=== PATIENT | female | born 1980 | race African-American/Black ===

== ENCOUNTER 2016-05-27 09:41 | Outpatient (CLI) | payer BC, MEDICAID ==
[2016-05-27] MEDS ORDERED: NORMAL SALINE 1000 ML 1,000 ML IV PRN (10:34)
[2016-05-27] MEDS ORDERED: ACETAMINOPHEN 325 MG TABLET PO PRN (10:35)
[2016-05-27] MEDS ORDERED: FUROSEMIDE INJ/PF 20 MG/2 ML SDV IV PRN (10:37)
[2016-05-27] MEDS ORDERED: DIPHENHYDRAMINE HCL 25 MG CAPSULE PO PRN (10:37)
[2016-05-27 12:14] LABS: HEMATOCRIT 23.5 % (36.0-47.0); HGB HCT DIFFERENCE 0.2; MEAN CORPUSCULAR HEMOGLOBIN 29.2 pg (27.0-33.4); MEAN CORPUSCULAR HGB CONC 33.6 g/dL (32.0-36.0); MEAN CORPUSCULAR VOLUME 87 fl (80-97); RED CELL DISTRIBUTION WIDTH 14.5 % (11.5-14.0)
[2016-05-27 12:59] LABS: HEMOGLOBIN 7.9 g/dL (12.0-15.5)
[2016-05-27 13:07] LABS: WHITE BLOOD COUNT 0.4 10^3/uL (4.0-10.5)
[2016-05-27 17:58] VITALS: BP 104/70
[2016-05-28 11:42] LABS: PATH REVIEW PATHOLOGIST REVIEWED
== END 2016-05-27 18:10 | disposition home or self-care (01) ==
LOC: II 09:41 → 5TH 09:44 → 2S 10:09 → II 18:10
PROVIDERS: ATTEND Internal Medicine Medical Oncology
PROC: 30243N1 Transfusion of Nonautologous Red Blood Cells into Central Vein, Percutaneous Approach (ICD-10-PCS; principal; 2016-05-27)
DX: C92.00 Acute myeloblastic leukemia, not having achieved remission (principal); D63.0 Anemia in neoplastic disease
CPT/HCPCS: 86900; 86901; 36415; 36430; 86850; 86920; P9016; P9035; J1940; J7030

== ENCOUNTER 2016-09-10 08:48 | Emergency (ER) | payer OTHER, BC ==
[2016-09-10] MEDS ORDERED: ACETAMINOPHEN 325 MG TABLET PO ONE (10:01)
[2016-09-10] MEDS ORDERED: DEXAMETHASONE SOD PHOS INJ 10 MG/1 ML VIAL IM ONE (10:01)
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
[2016-09-10 11:17] VITALS: BP 126/84
== END 2016-09-10 11:33 | disposition home or self-care (01) ==
LOC: ER 08:48
DX: R07.89 Other chest pain (principal); M54.41 Lumbago with sciatica, right side; M54.89 Other dorsalgia; V47.5XXA Car driver injured in collision with fixed or stationary object in traffic accident, initial encounter; Y93.89 Activity, other specified; C95.01 Acute leukemia of unspecified cell type, in remission; Z87.891 Personal history of nicotine dependence; Z88.8 Allergy status to other drugs, medicaments and biological substances
CPT/HCPCS: 71020; 72070; 72110; 99284

== ENCOUNTER 2017-09-23 11:32 | Inpatient (IN) | payer MEDICAID ==
[2017-09-23] MEDS ORDERED: HYDROMORPHONE HCL INJ/PF 2 MG/ML AMPULE IV ONE ×3 (12:08→13:56)
--- NOTE | 2017-09-23 12:36 | EKG REPORT ---
SEVERITY:- ABNORMAL ECG - SINUS TACHYCARDIA LEFT ANTERIOR FASCICULAR BLOCK : Confirmed by: Major Gurrola MD 23-Sep-2017 12:34:58
--- NOTE | 2017-09-23 12:36 | ER Document Report ---
ED General - General Chief Complaint: Chest Pain Stated Complaint: CHEST PAIN Time Seen by Provider: 09/23/17 12:06 TRAVEL OUTSIDE OF THE [place] 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 Patient is advised by her [facility] oncologist to come to the emergency department. She describes onset gradually last night of substernal chest pain, tight at times, now a pleuritic component. Some shortness of breath. Some cough. Nonradiating. Otherwise poorly described. Finish her IV chemotherapy is not taking oral chemotherapy. No other modifying factors, no other associated symptoms, no other provocative or palliative factors. - Related Data Allergies/Adverse Reactions: naproxen [From Aleve] Allergy (Intermediate, Verified 09/23/17 12:29) Yovany Past Medical History - General Information source: Patient - Social History Smoking Status: Never Smoker Family History: COPD, CVA, Hypertension, Malignancy - Medical History Notes: Includes acute myelogenous leukemia Pulmonary Medical History: Reports: Hx Pneumonia Renal/ Medical History: Denies: Hx Peritoneal Dialysis Malignancy Medical History: Reports: Hx Leukemia - AML Musculoskeltal Medical History: Reports Hx Musculoskeletal Deformity - Low back pain chronic Past Surgical History: Reports: Hx Section - x2, Hx Herniorrhaphy, Hx Tubal Ligation, Other - Ventral hernia and a right-sided Port-A-Cath - Immunizations Hx Diphtheria, Pertussis, Tetanus Vaccination: No Review of Systems - Review of Systems Notes: Review of systems as in the history of present illness, otherwise negative. Physical Exam - Vital signs Vitals: Resp BP Pulse Ox 23 H 117/74 100 09/23/17 12:23 09/23/17 12:23 09/23/17 12:23 - Notes Notes: General: Well developed . HEENT: Normocephalic, atraumatic. Pupils equal round reactive to light. No JVD. Chest: No trauma. Respiratory: Good air exchange, normal excursion. Cardiac: Regular rhythm. No murmurs or gallops. Abdomen: Soft, benign. Nondistended. Nontender. Back: No asymmetry or gross abnormality. Motor: Grossly normal power and tone. Neurologic: Alert, nonfocal. Cranial nerves II-12 are intact. Sensation intact. Vascular: Well perfused. Normal peripheral pulses. Skin: No petechiae or purpura. Remedies: Right proximal thigh tenderness without palpable venous cord Course - Re-evaluation Re-evalutation: 09/23/17 12:35 37-year-old female the after mentioned symptoms. Broad differential diagnosis includes pneumonia, pulmonary embolism, DVT. Less likely ACS but would be considered. May be esophageal spasm or atypical chest pain. Plan to proceed with basic labs, d-dimer screen, EKG, ultrasound, reevaluate. Will treat pain and nausea. 09/23/17 15:56 Labs reviewed, pancytopenia is noted with a total white count of 0.2, ANC of 0.1. There is noted to be depressed hemoglobin at 9.7, platelets are 42. Troponin elevated at 3.01. D-dimer is modestly elevated. Patient underwent emergent CTA to evaluate for pulmonary embolism, this is read as negative, there is no report of pneumonia or parenchymal abnormality. Patient did undergo ultrasound of her right lower extremity as she has some equivocal pain in her right medial thigh. This is negative for DVT. Patient has had some persistent tachycardia despite IV fluids. Of note, she is not febrile. I do not have a source of infection at this time nor strong suspicion of such. I originally spoke with the hospitalists here, they requested I speak with our generator operator straight bevel gear who indicated he felt the patient should be transferred to to the possibility of a need for intervention. Contact was made with both [facility] and [facility], however, ultimately patient was reassessed by her generator operator straight bevel gear felt to be appropriate for treatment here. She is going to undergo urgent echocardiogram and reevaluation. Her ECG does not show any acute ischemic changes. My suspicion for acute coronary syndrome is reasonably low given she has 0 risk factors and no significant family history. This is more likely to be something like myocarditis or atypical pericarditis. She remains hemodynamic is stable with a blood pressure in the 110s. Her pain is markedly improved with IV opiates. She will be admitted as discussed. She is received IV crystalloid resuscitation. She also received oral potassium early during the course of her treatment. 12 Lead ECG Analysis A 12 lead ECG is obtained and shows a sinus rhythm, normal QRS, normal QTC. There are nonspecific ST-T changes, no evidence of acute ischemic changes. 09/23/17 15:58 - Vital Signs Vital signs: Temp Pulse Resp BP Pulse Ox 137 H 30 H 119/80 100 05/08/18 13:36 09/23/17 15:30 09/23/17 15:30 09/23/17 15:30 - Laboratory Result Diagrams: 09/23/17 12:16 09/23/17 12:16 Laboratory results interpreted by me: 09/23/17 09/23/17 09/23/17 12:16 12:16 12:16 WBC 0.2 L* RBC 3.34 L Hgb 9.6 L Hct 27.6 L Plt Count 42 L Absolute Neutrophils 0.1 L Absolute Lymphocytes 0.0 L Absolute Monocytes 0.0 L D-Dimer 0.78 H Potassium 3.0 L* BUN 5 L Creatinine 0.48 L Total Protein 5.9 L Albumin 3.3 L Critical Care Note - Critical Care Note Comments: Critical Care Note Greater than 35 minutes of critical care time was spent with this patient. This includes serial evaluation of the patient as well as labs, radiographs and EKGs; discussion of the case with consultants and admitting physician. This does not include time spent performing procedures. Discharge - Discharge Condition: Serious Disposition: ADMITTED OBSERVATION Admitting Provider: Hospitalist Unit Admitted: Telemetry
[2017-09-23 12:45] LABS: ABSOLUTE NEUT (AUTO) 0.1 10^3/uL (1.7-8.2); EOSINOPHILS % (AUTO) 1.7 % (0-6); HEMATOCRIT 27.6 % (36.0-47.0); HEMOGLOBIN 9.6 g/dL (12.0-15.5); LYMPHOCYTES % (AUTO) 24.3 % (13-45); MEAN CORPUSCULAR HEMOGLOBIN 28.9 pg (27.0-33.4); MEAN CORPUSCULAR HGB CONC 34.9 g/dL (32.0-36.0); MEAN CORPUSCULAR VOLUME 83 fl (80-97); MONOCYTES % (AUTO) 3.2 % (3-13); PROTHROMBIN TIME 13.7 SEC (11.4-15.4); RED BLOOD COUNT 3.34 10^6/uL (3.72-5.28); SEGMENTED NEUTROPHILS % (AUTO) 68.8 % (42-78); TOTAL CELLS COUNTED % (AUTO) 100 %
[2017-09-23 12:47] LABS: D-DIMER 0.78 ug/mL (0.00-0.50)
[2017-09-23 12:58] LABS: PLATELET COUNT 42 10^3/uL (150-450)
[2017-09-23 12:59] LABS: WHITE BLOOD COUNT 0.2 10^3/uL (4.0-10.5)
[2017-09-23 13:00] LABS: ALANINE AMINOTRANSFERASE 21 U/L (9-52); ALBUMIN 3.3 g/dL (3.5-5.0); ALKALINE PHOSPHATASE 49 U/L (38-126); ANION GAP 15 (5-19); ASPARTATE AMINO TRANSFERASE 21 U/L (14-36); BILIRUBIN,DIRECT 0.3 mg/dL (0.0-0.4); BILIRUBIN,TOTAL 0.4 mg/dL (0.2-1.3); BLOOD UREA NITROGEN 5 mg/dL (7-20); CALCIUM 9.3 mg/dL (8.4-10.2); CARBON DIOXIDE 25 mmol/L (22-30); CHLORIDE 104 mmol/L (98-107); GLUCOSE 109 mg/dL (75-110); SODIUM 144.1 mmol/L (137-145); TOTAL PROTEIN 5.9 g/dL (6.3-8.2)
[2017-09-23] MEDS ORDERED: POTASSIUM CHLORIDE 20 MEQ/15 ML UDCUP PO ONE (13:06)
[2017-09-23 13:13] LABS: ANISOCYTOSIS SLIGHT; PLATELET COMMENT DECREASED
--- NOTE | 2017-09-23 13:24 | RADIOLOGY REPORT (SQ) ---
EXAM DESCRIPTION: CHEST 2 VIEWS COMPLETED DATE/TIME: 09/23/2017 1:08 pm REASON FOR STUDY: Chest pain COMPARISON: 09/10/2016 EXAM PARAMETERS: NUMBER OF VIEWS: two views TECHNIQUE: Digital Frontal and Lateral radiographic views of the chest acquired. RADIATION DOSE: NA LIMITATIONS: none FINDINGS: LUNGS AND PLEURA: No opacities, masses or pneumothorax. No pleural effusion. MEDIASTINUM AND HILAR STRUCTURES: No masses or contour abnormalities. HEART AND VASCULAR STRUCTURES: Heart normal size. No evidence for failure. BONES: No acute findings. HARDWARE: None in the chest. OTHER: Unchanged position of right-sided port. IMPRESSION: NO ACUTE RADIOGRAPHIC FINDING IN THE CHEST. TECHNICAL DOCUMENTATION: JOB ID: [id number] [employer]- All Rights Reserved Reading location - IP/workstation name: [email or web address]
--- NOTE | 2017-09-23 14:11 | RADIOLOGY REPORT (SQ) ---
EXAM DESCRIPTION: CTA CHEST COMPLETED DATE/TIME: 09/23/2017 1:49 pm REASON FOR STUDY: Elevated D-Dimer, pleuritic chest pain COMPARISON: Chest x-ray dated 09/23/2017 and CTA of the chest dated July 2015 TECHNIQUE: CT scan of the chest performed using helical scanning technique with dynamic intravenous contrast injection. Images reviewed with lung, soft tissue and bone windows. Reconstructed coronal and sagittal MPR images reviewed. Additional 3 dimensional post-processing performed to develop Maximal Intensity Projection images (DE P). All images stored on PACS. All CT scanners at this facility use dose modulation, iterative reconstruction, and/or weight based d osing when appropriate to reduce radiation dose to as low as reasonably achievable (ALARA). [facility]: Dose Right [facility]: CareDose [facility]: Dose Right [facility]: Teradose 4D [facility]: ClearEdge3D CONTRAST TYPE AND DOSE: contrast/concentration: Isovue 370.00 mg/ml; Total Contrast Delivered: 67.0 ml; Total Saline Delivered: 87.4 ml Contrast bolus optimized for the pulmonary arteries. Not diagnostic for the aorta. RENAL FUNCTION: Creatinine 0.48 RADIATION DOSE: CT Rad equipment meets quality standard of care and radiation dose reduction techniq ues were employed. CTDIvol: 15.0 - 16.5 mGy. DLP: 512 mGy-cm. . LIMITATIONS: None. FINDINGS: LUNGS AND PLEURA: There are some minimal bibasilar ground-glass opacities which could repr esent atelectatic changes or developing infiltrate. Remaining lung hsu are clear. No pleural eff usions are identified. No pneumothorax is seen. AORTA AND GREAT VESSELS: No aneurysm. Contrast bolus not optimized for the aorta. HEART: No pericardial effusion. No significant coronary artery calcifications. PULMONARY ARTERIES: No emboli visualized in the main pulmonary arteries or the segmental branches. HILAR AND MEDIASTINAL STRUCTURES: No identified masses or abnormal nodes. HARDWARE: Port-A-Cath is identified with its tip at the level of the superior vena cava P UPPER ABDOMEN: No significant findings. Limited exam. THYROID AND OTHER SOFT TISSUES: No masses. No adenopathy. BONES: No acute or significant finding. 3D MIPS: Confirm above findings. OTHER: No other significant finding. IMPRESSION: NORMAL CTA OF THE CHEST. NO PULMONARY EMBOLI. COMMENT: Quality ID # [id number]: Final reports with documentation of one or more dose reduction techniques (e.g., Automated exposure control, adjustment of the mA and/or kV according to patient size, use of iterative reconstruction technique) TECHNICAL DOCUMENTATION: JOB ID: [id number] [employer]- All Rights Reserved Reading location - IP/workstation name: [email or web address]
[2017-09-23] MEDS ORDERED: ZOLPIDEM TARTRATE 5 MG TABLET PO PRN (15:40)
[2017-09-23] MEDS ORDERED: MORPHINE SULFATE 10 MG/ML INJ IV PRN (15:46)
[2017-09-23] MEDS ORDERED: VANCOMYCIN HCL 0 MG in DEXTROSE 5%-WATER 250 ML IV NR (16:00)
[2017-09-23] MEDS ORDERED: NORMAL SALINE 1000 ML 1,000 ML IV PRN (16:13)
[2017-09-23] MEDS: ONDANSETRON HCL INJ/PF 4 MG/2 ML SDV IV PRN (16:17)
[2017-09-23] MEDS: OXYCODONE-ACETAMINOPHEN 5-325 MG TABLET PO PRN ×2 (16:19→20:17)
[2017-09-23] MEDS: NORMAL SALINE 1000 ML 1,000 ML IV PRN (16:24)
[2017-09-23] MEDS ORDERED: POTASSI CL 40 MEQ/NS 1L 1,000 ML IV PRN (16:27)
--- NOTE | 2017-09-23 16:42 | PDOC H&P ---
History of Present Illness Admission Date/PCP: September 23, 2017 Patient complains of: Chest pain worse today History of Present Illness: JENNIFER AGUILAR is a 37 year old female presents to ED accompanied by her sister and complains of worsening of chest pain which started around 4 days ago. Pain is worse when she takes a deep breath. Pain is localized to both sides of her chest. Patient denies fever, chills, palpitations or exposure to any sick relatives. 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 She denies any other medical conditions such as diabetes, high blood pressure, heart disease, stroke. During the course of evaluation in emergency room since ED physician was extremely concerned about the possibility of pulmonary embolism. A CTA of the chest was obtained as well as laboratories which included troponin. The latter was 3.0 and CTA of the chest was negative for PE. Her presentation was discussed with Dr. Vickers who after evaluating her EKG and objective data recommended for patient to stay in this facility for further treatment since accordingly or all patient needed was an echocardiogram. Our service was consulted and prompted to admit due to presentation. Further review of CTA report was suggestive of pneumonic process since patient is severely neutropenic Past Medical History Cardiac Medical History: Reports: None Pulmonary Medical History: Reports: Pneumonia EENT Medical History: Reports: None Neurological Medical History: Reports: None Endocrine Medical History: Reports: None Malignancy Medical History: Reports: Leukemia - AML GI Medical History: Reports: None Musculoskeltal Medical History: Reports: None Skin Medical History: Reports: None Psychiatric Medical History: Reports: None Traumatic Medical History: Reports: None Hematology: Reports: Anemia Infectious Medical History: Reports: None Past Surgical History Past Surgical History: Reports: Section - x2, Herniorrhaphy, Tubal Ligation, Other - Ventral hernia and a right-sided Port-A-Cath Social History Information Source: Patient Lives with: Family Smoking Status: Never Smoker Frequency of Alcohol Use: None Hx Recreational Drug Use: No Drugs: None Hx Prescription Drug Abuse: No - Advance Directive Resuscitation Status: Full Code Family History Family History: COPD, CVA, Hypertension, Malignancy Parental Family History Reviewed: Yes Children Family History Reviewed: Yes Sibling(s) Family History Reviewed.: Yes Medication/Allergy Home Medications: Levofloxacin [Levaquin] 1 tab PO DAILY 05/27/17 Oxycodone HCl [Oxycodone HCl 10 MG Tablet] 0.5 cap PO Q6H PRN 05/27/17 Allergies/Adverse Reactions: naproxen [From Aleve] Allergy (Intermediate, Verified 09/23/17 12:29) Hives Review of Systems Constitutional: ABSENT: chills, fever(s), night sweats Eyes: ABSENT: visual disturbances Ears: ABSENT: hearing changes Nose, Mouth, and Throat: ABSENT: mouth pain, sore throat Cardiovascular: PRESENT: chest pain. ABSENT: dyspnea on exertion, edema, palpitations Respiratory: PRESENT: dyspnea. ABSENT: cough, hemoptysis Gastrointestinal: ABSENT: abdominal pain, nausea, vomiting Genitourinary: ABSENT: dysuria, hematuria Musculoskeletal: ABSENT: deformity, joint swelling Neurological: ABSENT: dizziness, focal weakness, syncope Psychiatric: ABSENT: hallucinations Endocrine: ABSENT: polyphagia, polyuria Allergic/Immunologic: ABSENT: seasonal rhinorrhea Physical Exam Vital Signs: Temp Pulse Resp BP Pulse Ox 137 H 30 H 119/80 100 09/23/17 13:36 09/23/17 15:30 09/23/17 15:30 09/23/17 15:30 Intake & Output 09/22/17 09/23/17 09/24/17 06:59 06:59 06:59 Weight 72 kg General appearance: PRESENT: cooperative, mild distress, well-developed, well- nourished Head exam: PRESENT: atraumatic, normocephalic Eye exam: PRESENT: conjunctiva pink, EOMI, PERRLA Ear exam: PRESENT: normal external ear exam Mouth exam: PRESENT: moist Neck exam: PRESENT: full ROM. ABSENT: JVD, lymphadenopathy, tenderness, thyromegaly Respiratory exam: PRESENT: clear to auscultation sunil, decreased breath sounds Cardiovascular exam: PRESENT: RRR. ABSENT: diastolic murmur, systolic murmur Vascular exam: PRESENT: normal capillary refill GI/Abdominal exam: PRESENT: normal bowel sounds, soft. ABSENT: tenderness Extremities exam: PRESENT: full ROM. ABSENT: pedal edema Musculoskeletal exam: PRESENT: ambulatory Neurological exam: PRESENT: alert, awake, oriented to person, oriented to place , oriented to time, oriented to situation, CN II-XII grossly intact Skin exam: PRESENT: intact, normal color Results Laboratory Results: 09/23/17 12:16 09/23/17 12:16 09/23/17 09/23/17 12:16 12:16 WBC 0.2 L* RBC 3.34 L Hgb 9.6 L Hct 27.6 L MCV 83 MCH 28.9 MCHC 34.9 RDW 14.0 Plt Count 42 L Seg Neutrophils % 68.8 Lymphocytes % 24.3 Monocytes % 3.2 Eosinophils % 1.7 Basophils % 2.0 Absolute Neutrophils 0.1 L Absolute Lymphocytes 0.0 L Absolute Monocytes 0.0 L Absolute Eosinophils 0.0 Absolute Basophils 0.0 Sodium 144.1 Potassium 3.0 L* Chloride 104 Carbon Dioxide 25 Anion Gap 15 BUN 5 L Creatinine 0.48 L Est GFR ( Amer) > 60 Est GFR (Non-Af Amer) > 60 Glucose 109 Calcium 9.3 Total Bilirubin 0.4 AST 21 ALT 21 Alkaline Phosphatase 49 Total Protein 5.9 L Albumin 3.3 L 09/23/17 12:16 Troponin I 3.090 Impressions: Chest X-Ray 09/23/17 12:08 IMPRESSION: NO ACUTE RADIOGRAPHIC FINDING IN THE CHEST. Chest/Abdomen CTA 09/23/17 13:06 IMPRESSION: NORMAL CTA OF THE CHEST. NO PULMONARY EMBOLI. Assessment & Plan - Diagnosis (1) Sepsis Qualifiers: Sepsis type: sepsis due to unspecified organism Qualified Code(s): A41.9 - Sepsis, unspecified organism Is this a current diagnosis for this admission?: Yes Plan: . Patient presents tachycardic, tachypneic and severely neutropenic. Will place patient on Levaquin and vancomycin to order lactic acid level. To order 1 L normal saline bolus and to place on IV fluids supplemented with potassium of 150 mils per hour. Order blood and urine cultures (2) PNA (pneumonia) Qualifiers: Pneumonia type: due to unspecified organism Laterality: bilateral Lung location: lower lobe of lung Qualified Code(s): J18.1 - Lobar pneumonia, unspecified organism Is this a current diagnosis for this admission?: Yes Plan: To place patient on Levaquin and vancomycin (3) Neutropenia Qualifiers: Neutropenia type: secondary to cancer chemotherapy Qualified Code(s): D70.1 - Agranulocytosis secondary to cancer chemotherapy; T45.1X5A - Adverse effect of antineoplastic and immunosuppressive drugs, initial encounter; T45.1X5A - Adverse effect of antineoplastic and immunosuppressive drugs, initial encounter Is this a current diagnosis for this admission?: Yes Plan: Due to chemotherapy. To place on neutrogenic precautions. Will order one dose of Neupogen. Trend (4) Hypokalemia Is this a current diagnosis for this admission?: Yes Plan: Due to decreased oral intake. Patient will be supplemented through IV fluids orally. To order 1 dose of magnesium sulfate empirically. To trend (5) Anemia Qualifiers: Anemia type: unspecified type Qualified Code(s): D64.9 - Anemia, unspecified Is this a current diagnosis for this admission?: Yes Plan: Likely due to chemotherapy for AML - Time Time Spent: 50 to 70 Minutes Medications reviewed and adjusted accordingly: Yes Anticipated discharge: Home Within: within 72 hours - Inpatient Certification Based on my medical assessment, after consideration of the patient's comorbidities, presenting symptoms, or acuity I expect that the services needed warrant INPATIENT care.: Yes I certify that my determination is in accordance with my understanding of Medicare's requirements for reasonable and necessary INPATIENT services [42 CFR 412.3e].: Yes Medical Necessity: Significant Comorbidiites Make Outpatient Treatment Too Risky , Need Close Monitoring Due to Risk of Patient Decompensation, Need For IV Fluids, Need For Continuous Telemetry Monitoring, Need for Pain Control, Need for IV Antibiotics
[2017-09-23] MEDS ORDERED: FILGRASTIM INJ 480 MCG/1.6 ML VIAL SUBCUT ONE ×2 (17:00→22:00)
[2017-09-23] MEDS ORDERED: MAGNESIUM SULFATE/D5W 1 GM/100 ML RTUPB IV ONE (17:00)
[2017-09-23] MEDS: MORPHINE SULFATE 10 MG/ML INJ IV SCH ×2 (17:05→21:04)
[2017-09-23] MEDS ORDERED: ENOXAPARIN SODIUM INJ 40 MG/0.4 ML DISP.SYRIN SUBCUT SCH (18:00)
[2017-09-23] MEDS ORDERED: LEVOFLOXACIN 750 MG/D5W RTU 750 MG/150 ML RTUPB IV SCH (18:00)
[2017-09-23] MEDS: POTASSIUM CHLORIDE 10 MEQ TABLET.SA PO SCH (18:22)
--- NOTE | 2017-09-23 18:33 | XCELERA REPORT ---
[address] [address] Transthoracic Echocardiogram Report Name: JENNIFER AGUILAR Age: 37 yrs Gender: Female : 1980 Patient Status: Inpatient Patient Location: [place] [id number]^A Study Date: 09/23/2017 04:39 PM Height: 63 in Weight: 158 lb BSA: 1.7 m2 Procedure: A complete two-dimensional transthoracic echocardiogram was performed (2D, M-mode, spectral and color flow Doppler). The study was technically difficult with many images being suboptimal in quality. Reason For Study: Chest pain, elevated troponin Ordering Physician: WINTER RUVALCABA Performed By: Emma Shields Interpretation Summary The left ventricular ejection fraction is normal. There is borderline concentric left ventricular hypertrophy. The left ventricle is grossly normal size. Doppler measurements suggest impaired left ventricular relaxation, which is associated with grade I/IV or mild diastolic dysfunction Regional wall motion abnormalities cannot be excluded due to limited visualization. The right ventricular systolic function is normal. The right ventricle is grossly normal size. The right atrium is normal in size The left atrial size is normal. There is a trace amount of mitral regurgitation There is no mitral valve stenosis. No aortic regurgitation is present. There is no aortic valve stenosis There is no tricuspid stenosis. No tricuspid regurgitation. The aortic root is not well visualized but is probably normal size. The inferior vena cava appeared normal and decreased > 50% with respiration (RAP 5-10 mmHg) There is no pericardial effusion. MMode/2D Measurements & Calculations RVDd: 1.8 cm LVIDd: 4.6 cm FS: 37.3 % Ao root diam: 2.4 cm IVSd: 0.93 cm LVIDs: 2.9 cm EDV(Teich): 96.5 ml LVPWd: 0.90 cmESV(Teich): 31.5 ml Ao root area: 4.4 cm2 EF(Teich): 67.4 % LVOT diam: 2.0 cm LVOT area: 3.1 cm2 Doppler Measurements & Calculations MV E max gaye: MV dec slope: Ao V2 max: LV V1 max P.0 cm/sec 591.1 cm/sec2 151.1 cm/sec 5.4 mmHg MV A max gaye: MV dec time: Ao max PG: LV V1 max: 0.55 cm/sec 0.15 sec 9.1 mmHg 116.4 cm/sec MV E/A: 157.7 MEGAN(V,D): 2.4 cm2 PA V2 max: 118.5 cm/sec PA max P.6 mmHg Left Ventricle The left ventricle is grossly normal size. There is borderline concentric left ventricular hypertrophy. The left ventricular ejection fraction is normal. Doppler measurements suggest impaired left ventricular relaxation, which is associated with grade I/IV or mild diastolic dysfunction. Regional wall motion abnormalities cannot be excluded due to limited visualization. Right Ventricle The right ventricle is grossly normal size. There is normal right ventricular wall thickness. The right ventricular systolic function is normal. Atria The right atrium is normal in size. The left atrial size is normal. Interarterial septum not well visualized and not well dopplered. Cannot comment on ASD/PFO presence. Mitral Valve The mitral valve is grossly normal. There is no mitral valve stenosis. There is a trace amount of mitral regurgitation. Aortic Valve The aortic valve opens well. There is no aortic valve stenosis. No aortic regurgitation is present. Tricuspid Valve The tricuspid valve is not well visualized secondary to technical limitations. There is no tricuspid stenosis. No tricuspid regurgitation. Pulmonic Valve The pulmonic valve is not well visualized. Great Vessels The aortic root is not well visualized but is probably normal size. The inferior vena cava appeared normal and decreased > 50% with respiration (RAP 5-10 mmHg). Effusions There is no pericardial effusion. : WINTER RUVALCABA > Champ Vickers
--- NOTE | 2017-09-23 19:39 | XCELERA REPORT ---
[address] [address] Lower Extremity Venous Evaluation Name: JENNIFER AGUILAR Age: 37 yrs Gender: Female : 1980 Patient Status: Emergency Patient Location: ER Study Date: 09/23/2017 01:55 PM Procedure: Color flow and duplex imaging of the veins of the right lower extremity as well as the left Common Femoral vein. Reason For Study: Pain, rule out DVT, right leg Ordering Physician: WINTER RUVALCABA Performed By: Clarence Gaines Right Sided Venous Evaluation Normal vessel filling wall to wall, compression and augmentation as well as Colour flow down to the infrageniculate veins. Left Sided Venous Evaluation The left common femoral vein is fully compressible. Spontaneous and phasic flow is present in the left common femoral vein. Interpretation Summary No duplex evidence of DVT or obstruction in the right lower extremity nor in the left Common Femoral vein. : WINTER RUVALCABA > Evaristo Zurita
[2017-09-23] MEDS: VANCOMYCIN HCL 1,250 MG in DEXTROSE 5%-WATER 250 ML IV SCH (22:21)
[2017-09-23] MEDS: ATORVASTATIN CALCIUM 40 MG TABLET PO SCH (22:25)
[2017-09-23] MEDS: ACETAMINOPHEN 325 MG TABLET PO PRN (23:45)
[2017-09-24] MEDS: MORPHINE SULFATE 10 MG/ML INJ IV SCH ×4 (00:37→07:35)
[2017-09-24 03:33] LABS: HEMATOCRIT 26.1 % (36.0-47.0); HEMOGLOBIN 9.3 g/dL (12.0-15.5); MEAN CORPUSCULAR HEMOGLOBIN 29.1 pg (27.0-33.4); MEAN CORPUSCULAR HGB CONC 35.5 g/dL (32.0-36.0); MEAN CORPUSCULAR VOLUME 82 fl (80-97); RED BLOOD COUNT 3.18 10^6/uL (3.72-5.28); RED CELL DISTRIBUTION WIDTH 14.1 % (11.5-14.0)
[2017-09-24 03:36] LABS: PLATELET COUNT 52 10^3/uL (150-450)
[2017-09-24 03:40] LABS: WHITE BLOOD COUNT 0.3 10^3/uL (4.0-10.5)
[2017-09-24 03:46] LABS: ANION GAP 9 (5-19); BLOOD UREA NITROGEN 4 mg/dL (7-20); CALCIUM 8.8 mg/dL (8.4-10.2); CARBON DIOXIDE 28 mmol/L (22-30); CHLORIDE 101 mmol/L (98-107); GLUCOSE 101 mg/dL (75-110); SODIUM 137.7 mmol/L (137-145)
[2017-09-24 03:59] LABS: POTASSIUM 4.7 mmol/L (3.6-5.0)
[2017-09-24] MEDS: POTASSIUM CHLORIDE 10 MEQ TABLET.SA PO SCH (04:45)
[2017-09-24] MEDS: ONDANSETRON HCL INJ/PF 4 MG/2 ML SDV IV PRN (05:32)
[2017-09-24] MEDS: VANCOMYCIN HCL 1,250 MG in DEXTROSE 5%-WATER 250 ML IV SCH ×2 (06:20→21:54)
[2017-09-24] MEDS: NORMAL SALINE 1000 ML 1,000 ML IV PRN (07:36)
[2017-09-24] MEDS: ACETAMINOPHEN 325 MG TABLET PO PRN (07:57)
[2017-09-24] MEDS: OXYCODONE-ACETAMINOPHEN 5-325 MG TABLET PO PRN ×3 (07:59→17:37)
[2017-09-24] MEDS ORDERED: NORMAL SALINE 1000 ML 1,000 ML IV PRN (08:55)
[2017-09-24] MEDS ORDERED: HYDROMORPHONE HCL INJ/PF 2 MG/ML AMPULE IV PRN (08:58)
[2017-09-24] MEDS ORDERED: FILGRASTIM INJ 300 MCG/1 ML VIAL SUBCUT ONE (09:00)
[2017-09-24] MEDS: MEROPENEM 1 GM in NORMAL SALINE 50 ML IV SCH ×2 (09:31→17:47)
[2017-09-24] MEDS: ENOXAPARIN SODIUM INJ 40 MG/0.4 ML DISP.SYRIN SUBCUT SCH (09:35)
[2017-09-24] MEDS ORDERED: METOPROLOL SUCCINATE 25 MG TAB.SR.24H PO ONE (10:30)
[2017-09-24] MEDS ORDERED: METOPROLOL TARTRATE PF/INJ 5 MG/5 ML SDV IV ONE (10:30)
[2017-09-24 11:20] LABS: FREE T3 4.63 pg/mL (2.77-5.27); FREE T4 (FREE THYROXINE) 1.46 ng/dL (0.78-2.19)
[2017-09-24 11:33] LABS: THYROID STIMULATING HORMONE 1.54 uIU/mL (0.47-4.68)
[2017-09-24] MEDS ORDERED: FLUCONAZOLE 400 MG/NS RTU 400 MG/200 ML RTUPB IV ONE (14:00)
--- NOTE | 2017-09-24 15:30 | PDOC TRANSFER SUMMARY ---
General Admission Date/PCP: 09/23/17 15:53 Admission Date: 09/23/17 Transfer Date: 09/24/17 - Dr Turcios Accepting Facility: [place] Resuscitation Status: Full Code - Transfer Diagnosis (1) Sepsis Is this a current diagnosis for this admission?: Yes (2) PNA (pneumonia) Is this a current diagnosis for this admission?: Yes (3) NSTEMI (non-ST elevated myocardial infarction) Is this a current diagnosis for this admission?: Yes (4) Neutropenia Is this a current diagnosis for this admission?: Yes (5) Hypokalemia Is this a current diagnosis for this admission?: Yes (6) Anemia Is this a current diagnosis for this admission?: Yes (7) Family history of AML (acute myeloid leukemia) Is this a current diagnosis for this admission?: Yes - Transfer Medications Home Medications: Allopurinol [Zyloprim 300 mg Tablet] 300 mg PO DAILY 09/23/17 Levofloxacin [Levaquin 500 mg Tablet] 500 mg PO DAILY 09/23/17 Oxycodone HCl [Oxycontin] 10 mg PO Q12 09/23/17 Posaconazole [Noxafil] 300 mg PO DAILY 09/23/17 Prednisone [Deltasone 10 mg Tablet] 50 mg PO DAILY 09/23/17 Venetoclax [Venclexta] 100 mg PO [id number] 09/23/17 Transfer Medications: Current Medications Acetaminophen (Tylenol 325 Mg Tablet) 325 mg PO Q4HP PRN PRN Reason: FOR PAIN OR TEMP Stop: 10/23/17 15:39 Last Admin: 09/24/17 07:57 Dose: 325 mg Atorvastatin Calcium (Lipitor 40 Mg Tablet) 40 mg PO QHS JUNAID Stop: 10/23/17 21:59 Last Admin: 09/23/17 22:25 Dose: 40 mg Enoxaparin Sodium (Lovenox Inj 40 Mg/0.4 Ml Disp.Syrin) 40 mg SUBCUT DAILY JUNAID Stop: 10/24/17 09:59 Last Admin: 09/24/17 09:35 Dose: Not Given Hydromorphone HCl (Dilaudid Inj/Pf 2 Mg/Ml Ampule) 1 mg IV Q3HP PRN PRN Reason: FOR PAIN SCALE 4-5 Stop: 10/01/17 08:57 Sodium Chloride (Nacl 0.9% 1000 Ml Iv Soln) 1,000 mls @ 100 mls/hr IV CONTINUOUS PRN PRN Reason: THIS MED IS NOT "PRN" Stop: 10/23/17 15:39 Last Admin: 09/24/17 07:36 Dose: 1,000 ml Potassium Chloride/Sodium Chloride (Nacl 0.9% 1000 Ml/Kcl 40 Meq Premix Bag) 1, 000 mls @ 150 mls/hr IV CONTINUOUS PRN PRN Reason: THIS MED IS NOT "PRN" Stop: 10/23/17 16:26 Last Admin: 09/23/17 20:58 Dose: 1,000 ml Vancomycin HCl 1,250 mg/ (Dextrose) 250 mls @ 166.667 mls/hr IV Q12@0700,1900 [facility] Stop: 09/30/17 18:59 Last Admin: 09/24/17 06:20 Dose: 1,250 mg Sodium Chloride (Nacl 0.9% 1000 Ml Iv Soln) 1,000 mls @ 0 mls/hr IV ONCE PRN; Wide Open PRN Reason: THIS MED IS NOT "PRN" Stop: 10/24/17 08:54 Last Admin: 09/24/17 11:10 Dose: 1,000 ml Meropenem 1 gm/ Sodium (Chloride) 50 mls @ 100 mls/hr IV Q8A [facility] Stop: 10/01/17 09:59 Last Admin: 09/24/17 09:31 Dose: 1 gm Ibuprofen (Motrin 400 Mg Tablet) 400 mg PO Q6HP PRN PRN Reason: FEVER >101 Stop: 10/24/17 09:11 Metoprolol Succinate (Toprol Xl 25 Mg Tab.Sr) 12.5 mg PO Q12 [facility] Stop: 10/24/17 21:59 Metoprolol Tartrate (Lopressor Inj/Pf 5 Mg/5 Ml Sdv) 2.5 mg IV Q1HP PRN PRN Reason: HR>130 BP Stop: 10/24/17 10:19 Ondansetron HCl (Zofran Inj/Pf 4 Mg/2 Ml Sdv) 4 mg IV Q6HP PRN PRN Reason: FOR NAUSEA/VOMITING Stop: 10/23/17 15:39 Last Admin: 09/24/17 05:32 Dose: 4 mg Oxycodone/Acetaminophen (Percocet 5-325 Mg Tablet) 2 tab PO Q4HP PRN PRN Reason: FOR PAIN SCALE 3-4 Stop: 09/30/17 15:39 Last Admin: 09/24/17 12:55 Dose: 2 tab Zolpidem Tartrate (Ambien 5 Mg Tablet) 5 mg PO HSP PRN PRN Reason: SLEEP OR INSOMNIA Stop: 09/30/17 15:39 - Allergies Allergies/Adverse Reactions: naproxen [From Aleve] Allergy (Intermediate, Verified 09/23/17 12:29) [facility] Hospital Course Hospital Course: JENNIFER AGUILAR is a 37 year old female who presented to ED accompanied by her sister and complained of worsening of chest pain which started around 4 days ago. Pain is worse when she takes a deep breath. Pain is localized to both sides of her chest. Patient denied fever, chills, palpitations or exposure to any sick relatives. 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 She denied any other medical conditions such as diabetes, high blood pressure, heart disease, stroke. During the course of evaluation in emergency room since ED physician was extremely concerned about the possibility of pulmonary embolism. A CTA of the chest was obtained as well as laboratories which included troponin. The latter was 3.0 and CTA of the chest was negative for PE. Her presentation was discussed with Dr. Vickers (local dry cell and battery assembler) over the phone and recommended to be transferred to [facility]. At that time the thought was that patient was having a cardiac event. [facility] was contacted but there were no beds available. Dr. Vickers went to emergency room and after evaluating her EKG and objective data recommended for patient to stay in this facility for further treatment since accordingly all patient needed was an echocardiogram. The hospitalist service was consulted. After evaluating official report of CTA of the chest findings were suggestive of pneumonia. Patient was admitted under the hospitalist service for the treatment of pneumonia and sepsis in the setting of an immunosuppressed patient. Troponin trended down. Findings were consistent with a myocardial demand event. Lactic acid on admission was 2.1 and remained the same. Potassium was replaced via oral. Patient was started initially on vancomycin and Zosyn. We requested urine and blood culture and so far had been negative. Within the first 24 hours of being hospitalized patient developed a fever up to 101. She reported still having pain although it had improved somewhat. At the time of dictation Zosyn has been discontinued and placed on meropenem. In addition we added Diflucan to her regimen. Local oncologist that follows this patient locally recommended to contact [facility] for further transfer. Since patient was in a stepdown unit at our facility, [facility] transfer center facilitated for the author to talk to Dr. Hollingsworth who kindly accepted patient in transfer although there was no bed yet available. So far patient had remained stable with improvement of fever. Patient had been stabilized denies prior to the expected transfer. Physical Exam Vital Signs: Temp Pulse Resp BP Pulse Ox 99.3 F 135 H 16 119/78 95 09/24/17 11:00 09/24/17 11:00 09/24/17 11:00 09/24/17 11:00 09/24/17 11:00 Intake & Output 09/23/17 09/24/17 09/25/17 06:59 06:59 06:59 Intake Total 2617 Balance 2617 Weight 72.2 kg General appearance: PRESENT: cooperative, mild distress, well-developed, well- nourished Head exam: PRESENT: atraumatic, normocephalic Eye exam: PRESENT: conjunctiva pink, EOMI, PERRLA Ear exam: PRESENT: normal external ear exam Mouth exam: PRESENT: moist Neck exam: PRESENT: full ROM, JVD. ABSENT: lymphadenopathy, tenderness Respiratory exam: PRESENT: clear to auscultation sunil, decreased breath sounds Cardiovascular exam: PRESENT: tachycardia. ABSENT: diastolic murmur, systolic murmur Vascular exam: PRESENT: normal capillary refill GI/Abdominal exam: PRESENT: normal bowel sounds, soft. ABSENT: tenderness Extremities exam: PRESENT: full ROM. ABSENT: pedal edema Musculoskeletal exam: PRESENT: ambulatory Neurological exam: PRESENT: alert, awake, oriented to person, oriented to place , oriented to time, oriented to situation, CN II-XII grossly intact Psychiatric exam: PRESENT: appropriate affect, normal mood Skin exam: PRESENT: intact, normal color Results Laboratory Results: 09/24/17 03:11 09/24/17 03:11 09/23/17 09/23/17 09/24/17 16:36 19:03 03:11 WBC 0.3 L* RBC 3.18 L Hgb 9.3 L Hct 26.1 L MCV 82 MCH 29.1 MCHC 35.5 RDW 14.1 H Plt Count 52 L Sodium Potassium Chloride Carbon Dioxide Anion Gap BUN Creatinine Est GFR ( Amer) Est GFR (Non-Af Amer) Glucose Lactic Acid 2.1 2.2 H Calcium TSH Free T4 Free T3 pg/mL 09/24/17 09/24/17 03:11 03:11 WBC RBC Hgb Hct MCV MCH MCHC RDW Plt Count Sodium 137.7 Potassium 4.7 D Chloride 101 Carbon Dioxide 28 Anion Gap 9 BUN 4 L Creatinine 0.48 L Est GFR ( Amer) > 60 Est GFR (Non-Af Amer) > 60 Glucose 101 Lactic Acid Calcium 8.8 TSH 1.54 Free T4 1.46 Free T3 pg/mL 4.63 09/23/17 09/24/17 21:10 03:11 Troponin I 1.190 1.260 Impressions: Chest X-Ray 09/23/17 12:08 IMPRESSION: NO ACUTE RADIOGRAPHIC FINDING IN THE CHEST. Chest/Abdomen CTA 09/23/17 13:06 IMPRESSION: NORMAL CTA OF THE CHEST. NO PULMONARY EMBOLI. Plan Discharge Plan: Transfer to [facility] as soon as bed is available Time Spent: Greater than 30 Minutes
--- NOTE | 2017-09-24 16:56 | Physician Advisory Note ---
Physician Advisor ProgressNote .: Pursuant to the plan for [facility], I have reviewed the medical record for this patient. Physician Advisor Statement: Please consider documenting, if you agree: 1. "pancytopenia due to chemotherapy" Thanks! CK
[2017-09-24] MEDS: METOPROLOL TARTRATE PF/INJ 5 MG/5 ML SDV IV PRN (17:39)
--- NOTE | 2017-09-24 20:29 | PDOC CONSULTATION ---
Consultation Consult Date: 09/23/17 Attending physician:: RIZWAN ALCARAZ Consult reason:: Positive troponin I History of Present Illness Admission Date/PCP: 09/23/17 15:53 Patient complains of: Chest pain History of Present Illness: JENNIFER AGUILAR is a 37 year old female presents to ED accompanied by her sister and complains of worsening of chest pain which started around 4 days ago. Pain is worse when she takes a deep breath. Pain is localized to both sides of her chest. Patient denies fever, chills, palpitations or exposure to any sick relatives. 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 She denies any other medical conditions such as diabetes, high blood pressure, heart disease, stroke. During the course of evaluation in emergency room since ED physician was extremely concerned about the possibility of pulmonary embolism. A CTA of the chest was obtained as well as laboratories which included troponin. The latter was 3.0 and CTA of the chest was negative for PE. Her presentation was discussed with Dr. Vickers who after evaluating her EKG and objective data recommended for patient to stay in this facility for further treatment since accordingly or all patient needed was an echocardiogram. Our service was consulted and prompted to admit due to presentation. Further review of CTA report was suggestive of pneumonic process since patient is severely neutropenic. This history obtained by the hospitalist was reviewed and confirmed. I also saw the patient in the emergency room. Patient did describe a right-sided and central chest pain. This was describes as pleuritic in nature. Patient was noted to be tachycardic but otherwise comfortable without any shortness of breath. Patient had positive troponin I but no significant EKG changes. It was felt that we could board her in the hospital until we could find a place to transfer her for tertiary care since patient may be an acute myeloid crisis. Past Medical History Cardiac Medical History: Reports: None Pulmonary Medical History: Reports: Pneumonia EENT Medical History: Reports: None Neurological Medical History: Reports: None Endocrine Medical History: Reports: None Malignancy Medical History: Reports: Leukemia - AML GI Medical History: Reports: None Musculoskeltal Medical History: Reports: None Skin Medical History: Reports: None Psychiatric Medical History: Reports: None Traumatic Medical History: Reports: None Hematology: Reports: Anemia Infectious Medical History: Reports: None Past Surgical History Past Surgical History: Reports: Section - x2, Herniorrhaphy, Tubal Ligation, Other - Ventral hernia and a right-sided Port-A-Cath Social History Information Source: Patient Lives with: Family Smoking Status: Former Smoker Frequency of Alcohol Use: None Hx Recreational Drug Use: No Drugs: Marijuana Hx Prescription Drug Abuse: No - Advance Directive Resuscitation Status: Full Code Family History Family History: COPD, CVA, Hypertension, Malignancy Parental Family History Reviewed: Yes Children Family History Reviewed: Yes Sibling(s) Family History Reviewed.: Yes Medication/Allergy Home Medications: Allopurinol [Zyloprim 300 mg Tablet] 300 mg PO DAILY 09/23/17 Levofloxacin [Levaquin 500 mg Tablet] 500 mg PO DAILY 09/23/17 Oxycodone HCl [Oxycontin] 10 mg PO Q12 09/23/17 Posaconazole [Noxafil] 300 mg PO DAILY 09/23/17 Prednisone [Deltasone 10 mg Tablet] 50 mg PO DAILY 09/23/17 Venetoclax [Venclexta] 100 mg PO [id number] 09/23/17 Allergies/Adverse Reactions: naproxen [From Aleve] Allergy (Intermediate, Verified 09/23/17 12:29) Yovany Review of Systems Review of Systems: Please see history of present illness and past medical history as wall. Constitutional: No fever or chills reported. Head : No recent chronic headaches, recent head injury. Eyes: No recent eye pain, diplopia, redness, discharge, acute visual changes. Ears: No recent chronic ear pain, acute hearing loss, ear discharge. Oral cavity: No recent ulcerations, bleeding, oral cavity discomfort. Neck: No recent acute neck pain reported. Hematologic: No recent easy bruising or bleeding. Patient is positive for acute myeloid leukemia being treated. Lymphatic: No recent lymph node enlargement reported. Cardiovascular system review: See history of present illness. No prior history of heart problems. Respiratory system review: No hemoptysis or blood clots in the lungs reported. Mild Shortness of breath on exertion Gastrointestinal system review: Negative for any recent acute hematemesis, melena. Genitourinary system review: No recent acute or chronic hematuria, flank pain, UTI etc. reported. Skin system review: Negative for any recent abnormal bruising, no rash, no pruritus reported. Neurologic: No prior history of strokes, mini strokes, seizure disorder. Psychologic: No history of major psychosis or major depression reported. Musculoskeletal: Minor aches and pains reported. No acute joint swelling reported. Endocrine: No recent polyuria, polydipsia, recent heat or cold intolerance. Physical Exam Vital Signs: Temp Pulse Resp BP Pulse Ox 137 H 26 H 121/81 100 09/23/17 13:36 09/23/17 17:00 09/23/17 16:30 09/23/17 16:30 Exam: GENERAL: well-nourished and in no acute distress. Alert and oriented x3 HEAD: Atraumatic, normocephalic. EYES: Pupils equal round and reactive to light, extraocular movements intact, sclera anicteric, conjunctiva are normal. ENT: TMs normal, nares patent, oropharynx clear without exudates. Moist mucous membranes. No oral ulcerations or bleeding gums noted NECK: supple without lymphadenopathy. Trachea is central. No cervical or axillary lymphadenopathy noted. Carotids are 2+, JVD WNL LUNGS: Respiration seems nonlabored, no significant accessory muscle action noted. Breath sounds clear to auscultation bilaterally and equal noted. No wheezes rales or rhonchi noted. No significant dullness noted on percussion. CHEST: Palpation of the chest wall shows no significant chest wall tenderness. HEART: [place] [employer], No PSH, 1/6 GOPAL aortic area, 1/6 [place] systolic murmur mitral area, no rubs, no gallops. Patient noted to be tachycardic. ABDOMEN: Soft, no significant tenderness appreciated, normoactive bowel sounds. No guarding, no rebound. No rigidity noted . No masses appreciated. EXTREMITIES: Pedal pulses are 1-2+, no calf tenderness noted. No clubbing or cyanosis. negative pedal edema noted NEUROLOGICAL: Focused neurological exam showed no significant neurologic deficit. Normal speech, no focal weakness appreciated. PSYCH: Normal mood, normal affect. Judgment and insight within normal limits. SKIN: No significant ecchymosis, skin is noted to be warm. MUSCULOSKELETAL EXAM: No significant acute joint swelling noted. Results Laboratory Results: 09/23/17 09/23/17 16:36 19:03 Lactic Acid 2.1 2.2 H EKG Comments: Sinus tachycardia, no acute ST-T wave changes were noted. Impressions: Chest X-Ray 09/23/17 12:08 IMPRESSION: NO ACUTE RADIOGRAPHIC FINDING IN THE CHEST. Chest/Abdomen CTA 09/23/17 13:06 IMPRESSION: NORMAL CTA OF THE CHEST. NO PULMONARY EMBOLI. Assessment & Plan - Diagnosis (1) Elevated troponin I level Is this a current diagnosis for this admission?: Yes (2) NSTEMI (non-ST elevated myocardial infarction) Is this a current diagnosis for this admission?: Yes (3) Neutropenia Qualifiers: Neutropenia type: secondary to cancer chemotherapy Qualified Code(s): D70.1 - Agranulocytosis secondary to cancer chemotherapy; T45.1X5A - Adverse effect of antineoplastic and immunosuppressive drugs, initial encounter; T45.1X5A - Adverse effect of antineoplastic and immunosuppressive drugs, initial encounter Is this a current diagnosis for this admission?: Yes (4) Sepsis Qualifiers: Sepsis type: sepsis due to unspecified organism Qualified Code(s): A41.9 - Sepsis, unspecified organism Is this a current diagnosis for this admission?: Yes (5) Anemia Qualifiers: Anemia type: unspecified type Qualified Code(s): D64.9 - Anemia, unspecified Is this a current diagnosis for this admission?: Yes (6) Acute myeloid leukemia Qualifiers: Leukemia Active/Remission status: without remission Qualified Code(s): C92.00 - Acute myeloblastic leukemia, not having achieved remission Is this a current diagnosis for this admission?: Yes - Notes Notes: Elevated troponin I level: Most likely related to supply demand mismatch. Cannot rule out false elevation due to acute myelitis leukemia. Possibly also could be from sepsis. Non-STEMI: Patient has chest pain, atypical, positive troponin I. Possibly related to acute myeloid leukemia, sepsis etc. causing supply demand mismatch. Low probability of significant CAD at patient's age and no prior history of CAD. But this possibility cannot be entirely excluded. Neutropenia: Patient to undergo neutropenia prophylaxis. Sepsis: Patient may have underlying sepsis. Continue antibiotic therapy. Anemia: Currently stable. Transfuse as needed. Acute myeloid leukemia: Patient currently very neutropenic and is status post chemotherapy. Feel that patient will benefit from transfer to tertiary care for this reason. Patient to report any further problems - Time Time Spent: 30 to 50 Minutes - More than 50% of the time spent coordinating care , discussing management plans with involved caregivers. Management plans discussed with involved personnels. Medical decision making was of moderate to high complexity, patient's has multiple comorbidities. Medications reviewed and adjusted accordingly: Yes
--- NOTE | 2017-09-24 20:32 | PDOC PROGRESS REPORT ---
Subjective Progress Note for:: 09/24/17 Subjective:: Patient seems to be doing better . Still having chest pain but better. Enzymes have trended down. EKG is still showing no significant changes. Patient remained tachycardic.. Pt is denying any chest arm or neck discomfort. Patient denying any PND, orthopnea. Patient denied any sustained palpitations , dizziness, syncope, near syncope. Patient denying any fever chills. Patient denying any other significant discomfort. Patient is maintaining sinus rhythm. Review of systems: Rest review of systems negative. Medications: Medications have been reviewed. Reason For Visit: NSTEMI,SEPSIS,PNA Physical Exam Vital Signs: Temp Pulse Resp BP Pulse Ox 100.1 F 130 H 16 104/63 91 L 09/24/17 20:12 09/24/17 20:12 09/24/17 20:12 09/24/17 20:12 09/24/17 20:12 Intake & Output 09/23/17 09/24/17 09/25/17 06:59 06:59 06:59 Intake Total 2617 2624 Balance 2617 2624 Weight 72.2 kg Exam: GENERAL: well-nourished and in no acute distress. Alert and oriented x3 HEAD: Atraumatic, normocephalic. EYES: Pupils equal round and reactive to light, extraocular movements intact, sclera anicteric, conjunctiva are normal. ENT: TMs normal, nares patent, oropharynx clear without exudates. Moist mucous membranes. No oral ulcerations or bleeding gums noted NECK: supple without lymphadenopathy. Trachea is central. No cervical or axillary lymphadenopathy noted. Carotids are 2+, JVD WNL LUNGS: Respiration seems nonlabored, no significant accessory muscle action noted. Breath sounds clear to auscultation bilaterally and equal noted. No wheezes rales or rhonchi noted. No significant dullness noted on percussion. CHEST: Palpation of the chest wall shows slight diffuse chest wall tenderness. HEART: [place] [employer], No PSH, 1/6 GOPAL aortic area, 1/6 manning systolic murmur mitral area, no rubs, no gallops. ABDOMEN: Soft, no significant tenderness appreciated, normoactive bowel sounds. No guarding, no rebound. No rigidity noted . No masses appreciated. EXTREMITIES: Pedal pulses are 1-2+, no calf tenderness noted. No clubbing or cyanosis. negative pedal edema noted NEUROLOGICAL: Focused neurological exam showed no significant neurologic deficit. Normal speech, no focal weakness appreciated. PSYCH: Normal mood, normal affect. Judgment and insight within normal limits. SKIN: No significant ecchymosis, skin is noted to be warm. MUSCULOSKELETAL EXAM: No significant acute joint swelling noted. Results Laboratory Results: 09/24/17 03:11 09/24/17 03:11 09/24/17 09/24/17 09/24/17 03:11 03:11 03:11 WBC 0.3 L* RBC 3.18 L Hgb 9.3 L Hct 26.1 L MCV 82 MCH 29.1 MCHC 35.5 RDW 14.1 H Plt Count 52 L Sodium 137.7 Potassium 4.7 D Chloride 101 Carbon Dioxide 28 Anion Gap 9 BUN 4 L Creatinine 0.48 L Est GFR ( Amer) > 60 Est GFR (Non-Af Amer) > 60 Glucose 101 Calcium 8.8 TSH 1.54 Free T4 1.46 Free T3 pg/mL 4.63 09/23/17 09/24/17 21:10 03:11 Troponin I 1.190 1.260 EKG Comments: Shows sinus tachycardia Impressions: Chest X-Ray 09/23/17 12:08 IMPRESSION: NO ACUTE RADIOGRAPHIC FINDING IN THE CHEST. Chest/Abdomen CTA 09/23/17 13:06 IMPRESSION: NORMAL CTA OF THE CHEST. NO PULMONARY EMBOLI. Assessment & Plan - Diagnosis (1) Elevated troponin I level Is this a current diagnosis for this admission?: Yes (2) NSTEMI (non-ST elevated myocardial infarction) Is this a current diagnosis for this admission?: Yes (3) Neutropenia Qualifiers: Neutropenia type: secondary to cancer chemotherapy Qualified Code(s): D70.1 - Agranulocytosis secondary to cancer chemotherapy; T45.1X5A - Adverse effect of antineoplastic and immunosuppressive drugs, initial encounter; T45.1X5A - Adverse effect of antineoplastic and immunosuppressive drugs, initial encounter Is this a current diagnosis for this admission?: Yes (4) Sepsis Qualifiers: Sepsis type: sepsis due to unspecified organism Qualified Code(s): A41.9 - Sepsis, unspecified organism Is this a current diagnosis for this admission?: Yes (5) Anemia Qualifiers: Anemia type: unspecified type Qualified Code(s): D64.9 - Anemia, unspecified Is this a current diagnosis for this admission?: Yes (6) Acute myeloid leukemia Qualifiers: Leukemia Active/Remission status: without remission Qualified Code(s): C92.00 - Acute myeloblastic leukemia, not having achieved remission Is this a current diagnosis for this admission?: Yes (7) Tachycardia Is this a current diagnosis for this admission?: Yes - Notes Notes: Enzymes are trending down. Doubt myocardial infarction. 2D echo from yesterday was reviewed. No wall motion abnormalities were noted. Agree with hospitalist's assessment that patient may have underlying sepsis. Because of tachycardia, patient was placed on metoprolol succinate 12.5 mg p.o. twice daily, patient also ordered to get metoprolol tartrate 2.5 mg IV every 1 as needed for heart rate over 120. These were handwritten and explained to the nurse. Elevated troponin I level: Most likely related to supply demand mismatch. Cannot rule out false elevation due to acute myelitis leukemia. Possibly also could be from sepsis. Non-STEMI: Patient has chest pain, atypical, positive troponin I. Possibly related to acute myeloid leukemia, sepsis etc. causing supply demand mismatch. Low probability of significant CAD at patient's age and no prior history of CAD. But this possibility cannot be entirely excluded. Neutropenia: Patient to undergo neutropenia prophylaxis. Sepsis: Patient may have underlying sepsis. Continue antibiotic therapy. Anemia: Currently stable. Transfuse as needed. Acute myeloid leukemia: Patient currently very neutropenic and is status post chemotherapy. Feel that patient will benefit from transfer to tertiary care for this reason. Patient to report any further problems - Time Time with patient: Greater than 35 minutes - Patient has numerous medical problems and is quite ill. Chronic anticoagulation not being considered in view of low platelet count and increased risk of bleeding. Did not feel risk- benefit favors this. Do not feel patient having acute PR due to acute coronary syndrome. Troponin I elevation is felt to be related to sepsis More than 50% of the time spent coordinating care, discussing management plans with involved caregivers. Management plans discussed with involved personnels. Medical decision making was of moderate to high complexity, patient's has multiple comorbidities. Medications reviewed and adjusted accordingly: Yes
[2017-09-24] MEDS: METOPROLOL SUCCINATE 25 MG TAB.SR.24H PO SCH (21:54)
[2017-09-24] MEDS: ATORVASTATIN CALCIUM 40 MG TABLET PO SCH (21:55)
[2017-09-24] MEDS: MORPHINE SULFATE 10 MG/ML INJ IV PRN (21:55)
[2017-09-25] MEDS: ACETAMINOPHEN 325 MG TABLET PO PRN (00:18)
[2017-09-25] MEDS: MEROPENEM 1 GM in NORMAL SALINE 50 ML IV SCH ×3 (01:15→17:18)
[2017-09-25] MEDS: MORPHINE SULFATE 10 MG/ML INJ IV PRN ×4 (05:56→22:18)
[2017-09-25] MEDS: OXYCODONE-ACETAMINOPHEN 5-325 MG TABLET PO PRN ×3 (07:26→23:27)
--- NOTE | 2017-09-25 07:32 | EKG REPORT ---
SEVERITY:- BORDERLINE ECG - SINUS TACHYCARDIA LEFT AXIS DEVIATION BORDERLINE T ABNORMALITIES, ANTERIOR LEADS SUBTLE ST ELEVATION IN LATERAL LEADS, SERIAL EKG AND CLINICAL CORRELATION.NEEDED. LOW VOLTAGE EKG ? ETIOLOGY : Confirmed by: Major Gurrola MD 25-Sep-2017 07:32:03
[2017-09-25 07:37] LABS: ABSOLUTE LYMPHOCYTES (AUTO) 0.1 10^3/uL (0.5-4.7); ABSOLUTE NEUT (AUTO) 0.2 10^3/uL (1.7-8.2); BASOPHILS % (AUTO) 1.6 % (0-2); EOSINOPHILS % (AUTO) 0.1 % (0-6); HEMATOCRIT 23.1 % (36.0-47.0); LYMPHOCYTES % (AUTO) 21.1 % (13-45); MEAN CORPUSCULAR HEMOGLOBIN 28.7 pg (27.0-33.4); MEAN CORPUSCULAR HGB CONC 34.8 g/dL (32.0-36.0); MEAN CORPUSCULAR VOLUME 83 fl (80-97); MONOCYTES % (AUTO) 6.2 % (3-13); RED BLOOD COUNT 2.79 10^6/uL (3.72-5.28); RED CELL DISTRIBUTION WIDTH 14.2 % (11.5-14.0); TOTAL CELLS COUNTED % (AUTO) 100 %
[2017-09-25 07:56] LABS: ANION GAP 8 (5-19); BLOOD UREA NITROGEN 5 mg/dL (7-20); CALCIUM 8.6 mg/dL (8.4-10.2); CARBON DIOXIDE 27 mmol/L (22-30); CHLORIDE 103 mmol/L (98-107); GLUCOSE 89 mg/dL (75-110); POTASSIUM 4.1 mmol/L (3.6-5.0); SODIUM 138.4 mmol/L (137-145)
[2017-09-25 08:01] LABS: VANCOMYCIN,TROUGH 7.1 ug/mL (5.0-20.0)
[2017-09-25 08:13] LABS: PLATELET COUNT 70 10^3/uL (150-450)
[2017-09-25 08:14] LABS: APPEARANCE,URINE CLEAR; BILIRUBIN,URINE NEGATIVE (NEGATIVE); COLOR,URINE STRAW; GLUCOSE, URINE NEGATIVE (NEGATIVE); KETONES,URINE TRACE mg/dL (NEGATIVE); LEUKOCYTE ESTERASE,URINE NEGATIVE (NEGATIVE); NITRITE,URINE NEGATIVE (NEGATIVE); PROTEIN,URINE NEGATIVE (NEGATIVE); URINE SPECIFIC GRAVITY 1.008; UROBILINOGEN,URINE NEGATIVE mg/dL (<2.0)
[2017-09-25 08:15] LABS: WHITE BLOOD COUNT 0.3 10^3/uL (4.0-10.5)
[2017-09-25 08:17] LABS: ANISOCYTOSIS SLIGHT; OVALOCYTES 1+; PLATELET COMMENT DECREASED; POIKILOCYTOSIS 1+
[2017-09-25] MEDS: IBUPROFEN 400 MG TABLET PO PRN ×2 (09:21→17:18)
[2017-09-25] MEDS: METOPROLOL SUCCINATE 25 MG TAB.SR.24H PO SCH ×2 (09:21→22:16)
[2017-09-25] MEDS: ENOXAPARIN SODIUM INJ 40 MG/0.4 ML DISP.SYRIN SUBCUT SCH (09:25)
[2017-09-25] MEDS: ONDANSETRON HCL INJ/PF 4 MG/2 ML SDV IV PRN (10:06)
[2017-09-25] MEDS ORDERED: POTASSI CL 40 MEQ/NS 1L 1,000 ML IV PRN (13:44)
--- NOTE | 2017-09-25 14:30 | RADIOLOGY REPORT (SQ) ---
EXAM DESCRIPTION: CHEST 2 VIEWS COMPLETED DATE/TIME: 09/25/2017 2:17 pm REASON FOR STUDY: Cough COMPARISON: 09/23/2017 EXAM PARAMETERS: NUMBER OF VIEWS: two views TECHNIQUE: Digital Frontal and Lateral radiographic views of the chest acquired. RADIATION DOSE: NA LIMITATIONS: none FINDINGS: LUNGS AND PLEURA: Subsegmental airspace disease in the right lower lobe. MEDIASTINUM AND HILAR STRUCTURES: No masses or contour abnormalities. HEART AND VASCULAR STRUCTURES: Cardiomegaly. BONES: No acute findings. HARDWARE: None in the chest. OTHER: Unchanged position of right-sided port. IMPRESSION: Right lower lobe pneumonia. TECHNICAL DOCUMENTATION: JOB ID: [id number]- All Rights Reserved Reading location - IP/workstation name: [email or web address]
[2017-09-25] MEDS: VANCOMYCIN HCL 1,250 MG in DEXTROSE 5%-WATER 250 ML IV SCH ×2 (14:47→22:24)
--- NOTE | 2017-09-25 14:52 | PDOC PROGRESS REPORT ---
Subjective Progress Note for:: 09/25/17 Subjective:: 37-year-old female with AML undergoing chemotherapy at [facility]. She presented to the hospital with chest pain and leukopenia. PA of the chest was negative for pulmonary embolism. Troponin went up as high as 3 and it was initially thought that she had a non- STEMI. However patient developed high-grade fevers and was found to have pneumonia. It was felt that her elevated troponins were secondary to sepsis from pneumonia. She was given one dose of Filgrastim. Awaiting transfer to [facility]. Reason For Visit: NSTEMI,SEPSIS,PNA Physical Exam Vital Signs: Temp Pulse Resp BP Pulse Ox 99.4 F 115 H 18 107/69 92 09/25/17 11:34 09/25/17 11:34 09/25/17 11:34 09/25/17 11:34 09/25/17 11:34 Intake & Output 09/24/17 09/25/17 09/26/17 06:59 06:59 06:59 Intake Total 2617 4659 300 Balance 2617 4659 300 Weight 72.2 kg 73.6 kg General appearance: PRESENT: cooperative, well-developed Head exam: PRESENT: normocephalic Eye exam: PRESENT: PERRLA Ear exam: PRESENT: normal external ear exam Mouth exam: PRESENT: moist Respiratory exam: PRESENT: decreased breath sounds, symmetrical, unlabored Cardiovascular exam: PRESENT: RRR GI/Abdominal exam: PRESENT: normal bowel sounds, soft. ABSENT: tenderness Rectal exam: PRESENT: deferred Extremities exam: ABSENT: pedal edema Neurological exam: PRESENT: alert, awake, oriented to person, oriented to place , oriented to time, oriented to situation Psychiatric exam: PRESENT: anxious Skin exam: ABSENT: petechiae Results Laboratory Results: 09/25/17 06:59 09/25/17 06:59 09/25/17 09/25/17 09/25/17 06:59 06:59 07:31 WBC 0.3 L* RBC 2.79 L Hgb 8.0 L Hct 23.1 L MCV 83 MCH 28.7 MCHC 34.8 RDW 14.2 H Plt Count 70 L Seg Neutrophils % 71.0 Lymphocytes % 21.1 Monocytes % 6.2 Eosinophils % 0.1 Basophils % 1.6 Absolute Neutrophils 0.2 L Absolute Lymphocytes 0.1 L Absolute Monocytes 0.0 L Absolute Eosinophils 0.0 Absolute Basophils 0.0 Sodium 138.4 Potassium 4.1 Chloride 103 Carbon Dioxide 27 Anion Gap 8 BUN 5 L Creatinine 0.51 L Est GFR ( Amer) > 60 Est GFR (Non-Af Amer) > 60 Glucose 89 Calcium 8.6 Urine Color STRAW Urine Appearance CLEAR Urine pH 7.0 Ur Specific [place] 1.008 Urine Protein NEGATIVE Urine Glucose (UA) NEGATIVE Urine Ketones TRACE H Urine Blood MODERATE H Urine Nitrite NEGATIVE Ur Leukocyte Esterase NEGATIVE Urine WBC (Auto) 1 Urine RBC (Auto) 3 09/23/17 09/24/17 21:10 03:11 Troponin I 1.190 1.260 Impressions: Chest/Abdomen CTA 09/23/17 13:06 IMPRESSION: NORMAL CTA OF THE CHEST. NO PULMONARY EMBOLI. Chest X-Ray 09/25/17 00:00 IMPRESSION: Right lower lobe pneumonia. Assessment & Plan - Diagnosis (1) Elevated troponin I level Is this a current diagnosis for this admission?: Yes Plan: [place] to be secondary to sepsis. Cardiology input appreciated (2) Neutropenia Qualifiers: Neutropenia type: secondary to cancer chemotherapy Qualified Code(s): D70.1 - Agranulocytosis secondary to cancer chemotherapy; T45.1X5A - Adverse effect of antineoplastic and immunosuppressive drugs, initial encounter; T45.1X5A - Adverse effect of antineoplastic and immunosuppressive drugs, initial encounter Is this a current diagnosis for this admission?: Yes (3) PNA (pneumonia) Qualifiers: Pneumonia type: due to unspecified organism Laterality: right Lung location: lower lobe of lung Qualified Code(s): J18.1 - Lobar pneumonia, unspecified organism Is this a current diagnosis for this admission?: Yes Plan: Day 2 of Vancomycin and Meropenem. (4) Sepsis Qualifiers: Sepsis type: sepsis due to unspecified organism Qualified Code(s): A41.9 - Sepsis, unspecified organism Is this a current diagnosis for this admission?: Yes Plan: Due to pneumonia (5) Acute myeloid leukemia Qualifiers: Leukemia Active/Remission status: without remission Qualified Code(s): C92.00 - Acute myeloblastic leukemia, not having achieved remission Is this a current diagnosis for this admission?: Yes Plan: Plan to transfer to [facility] once bed is available - Time Time Spent with patient: 35 or more minutes - Inpatient Certification Based on my medical assessment, after consideration of the patient's comorbidities, presenting symptoms, or acuity I expect that the services needed warrant INPATIENT care.: Yes I certify that my determination is in accordance with my understanding of Medicare's requirements for reasonable and necessary INPATIENT services [42 CFR 412.3e].: Yes Medical Necessity: Need Close Monitoring Due to Risk of Patient Decompensation, Need for IV Antibiotics
[2017-09-25] MEDS: METOPROLOL TARTRATE PF/INJ 5 MG/5 ML SDV IV PRN (17:14)
[2017-09-25] MEDS: LACTOBACILLUS ACIDOPHILUS 250 MG TAB PO SCH (17:20)
--- NOTE | 2017-09-25 19:40 | PDOC PROGRESS REPORT ---
Subjective Progress Note for:: 09/25/17 Subjective:: Patient seems to be doing better . Still having chest pain but better. Enzymes have trended down. EKG is still showing no significant changes. Patient remained tachycardic.. Pt is denying any chest arm or neck discomfort. Patient denying any PND, orthopnea. Patient denied any sustained palpitations , dizziness, syncope, near syncope. Patient denying any fever chills. Patient denying any other significant discomfort. Patient is maintaining sinus rhythm. Review of systems: Rest review of systems negative. Medications: Medications have been reviewed. Reason For Visit: NSTEMI,SEPSIS,PNA Physical Exam Vital Signs: Temp Pulse Resp BP Pulse Ox 102.2 F H 127 H 17 114/68 99 09/25/17 07:29 09/25/17 07:29 09/25/17 07:29 09/25/17 07:29 09/25/17 07:29 Intake & Output 09/24/17 09/25/17 09/26/17 06:59 06:59 06:59 Intake Total 2617 4659 Balance 2617 4659 Weight 72.2 kg 73.6 kg Exam: GENERAL: well-nourished and in no acute distress. Alert and oriented x3 HEAD: Atraumatic, normocephalic. EYES: Pupils equal round and reactive to light, extraocular movements intact, sclera anicteric, conjunctiva are normal. ENT: TMs normal, nares patent, oropharynx clear without exudates. Moist mucous membranes. No oral ulcerations or bleeding gums noted NECK: supple without lymphadenopathy. Trachea is central. No cervical or axillary lymphadenopathy noted. Carotids are 2+, JVD WNL LUNGS: Respiration seems nonlabored, no significant accessory muscle action noted. Few bibasilar crackles are noted. No wheezes rales or rhonchi noted. No significant dullness noted on percussion. CHEST: Palpation of the chest wall shows mild chest wall tenderness. 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 ABDOMEN: Soft, no significant tenderness appreciated, normoactive bowel sounds. No guarding, no rebound. No rigidity noted . No masses appreciated. EXTREMITIES: Pedal pulses are 1-2+, no calf tenderness noted. No clubbing or cyanosis. negative pedal edema noted NEUROLOGICAL: Focused neurological exam showed no significant neurologic deficit. Normal speech, no focal weakness appreciated. PSYCH: Normal mood, normal affect. Judgment and insight within normal limits. SKIN: No significant ecchymosis, skin is noted to be warm. MUSCULOSKELETAL EXAM: No significant acute joint swelling noted. Results Laboratory Results: 09/25/17 06:59 09/25/17 06:59 09/24/17 09/25/17 09/25/17 03:11 06:59 06:59 WBC 0.3 L* RBC 2.79 L Hgb 8.0 L Hct 23.1 L MCV 83 MCH 28.7 MCHC 34.8 RDW 14.2 H Plt Count 70 L Seg Neutrophils % 71.0 Lymphocytes % 21.1 Monocytes % 6.2 Eosinophils % 0.1 Basophils % 1.6 Absolute Neutrophils 0.2 L Absolute Lymphocytes 0.1 L Absolute Monocytes 0.0 L Absolute Eosinophils 0.0 Absolute Basophils 0.0 Sodium 138.4 Potassium 4.1 Chloride 103 Carbon Dioxide 27 Anion Gap 8 BUN 5 L Creatinine 0.51 L Est GFR ( Amer) > 60 Est GFR (Non-Af Amer) > 60 Glucose 89 Calcium 8.6 TSH 1.54 Free T4 1.46 Free T3 pg/mL 4.63 Urine Color Urine Appearance Urine pH Ur Specific [place] Urine Protein Urine Glucose (UA) Urine Ketones Urine Blood Urine Nitrite Ur Leukocyte Esterase Urine WBC (Auto) Urine RBC (Auto) 09/25/17 07:31 WBC RBC Hgb Hct MCV MCH MCHC RDW Plt Count Seg Neutrophils % Lymphocytes % Monocytes % Eosinophils % Basophils % Absolute Neutrophils Absolute Lymphocytes Absolute Monocytes Absolute Eosinophils Absolute Basophils Sodium Potassium Chloride Carbon Dioxide Anion Gap BUN Creatinine Est GFR ( Amer) Est GFR (Non-Af Amer) Glucose Calcium TSH Free T4 Free T3 pg/mL Urine Color STRAW Urine Appearance CLEAR Urine pH 7.0 Ur Specific [place] 1.008 Urine Protein NEGATIVE Urine Glucose (UA) NEGATIVE Urine Ketones TRACE H Urine Blood MODERATE H Urine Nitrite NEGATIVE Ur Leukocyte Esterase NEGATIVE Urine WBC (Auto) 1 Urine RBC (Auto) 3 09/23/17 09/24/17 21:10 03:11 Troponin I 1.190 1.260 EKG Comments: Telemetry shows sinus tachycardia Impressions: Chest X-Ray 09/23/17 12:08 IMPRESSION: NO ACUTE RADIOGRAPHIC FINDING IN THE CHEST. Chest/Abdomen CTA 09/23/17 13:06 IMPRESSION: NORMAL CTA OF THE CHEST. NO PULMONARY EMBOLI. Assessment & Plan - Diagnosis (1) Elevated troponin I level Is this a current diagnosis for this admission?: Yes (2) NSTEMI (non-ST elevated myocardial infarction) Is this a current diagnosis for this admission?: Yes (3) Neutropenia Qualifiers: Neutropenia type: secondary to cancer chemotherapy Qualified Code(s): D70.1 - Agranulocytosis secondary to cancer chemotherapy; T45.1X5A - Adverse effect of antineoplastic and immunosuppressive drugs, initial encounter; T45.1X5A - Adverse effect of antineoplastic and immunosuppressive drugs, initial encounter Is this a current diagnosis for this admission?: Yes (4) Sepsis Qualifiers: Sepsis type: sepsis due to unspecified organism Qualified Code(s): A41.9 - Sepsis, unspecified organism Is this a current diagnosis for this admission?: Yes (5) Anemia Qualifiers: Anemia type: unspecified type Qualified Code(s): D64.9 - Anemia, unspecified Is this a current diagnosis for this admission?: Yes (6) Acute myeloid leukemia Qualifiers: Leukemia Active/Remission status: without remission Qualified Code(s): C92.00 - Acute myeloblastic leukemia, not having achieved remission Is this a current diagnosis for this admission?: Yes (7) Tachycardia Is this a current diagnosis for this admission?: Yes - Notes Notes: Enzyme levels are trending down. Patient is noted to be tachycardic for which patient was placed on increased dose of beta-bailey. Patient still awaiting a bed for transfer To tertiary care. Elevated troponin I level: Most likely related to supply demand mismatch. Cannot rule out false elevation due to acute myeloid leukemia. Possibly also could be from sepsis. Non-STEMI: Patient has chest pain, atypical, positive troponin I. Possibly related to acute myeloid leukemia, sepsis etc. causing supply demand mismatch, micro emboli etc. Low probability of significant CAD at patient's age and no prior history of CAD. EKG obtained was nonacute. Neutropenia: Patient to undergo neutropenia prophylaxis. Sepsis: Patient may have underlying sepsis. Continue antibiotic therapy. Anemia: Currently stable. Transfuse as needed. Acute myeloid leukemia: Patient currently very neutropenic and is status post chemotherapy. Feel that patient will benefit from transfer to tertiary care for this reason. Tachycardia: This is mostly related to metabolic problem, anemia, sepsis etc. Patient however placed on beta-bailey since tachycardia was felt to be somewhat also inappropriate. Patient to report any further problems - Time Time with patient: Greater than 35 minutes - CODE STATUS was discussed, patient remains full code. Multiple medical problems were addressed. More than 50% of the time spent coordinating care, discussing management plans with involved caregivers. Management plans discussed with involved personnels. Medical decision making was of moderate to high complexity, patient's has multiple comorbidities. Medications reviewed and adjusted accordingly: Yes
[2017-09-25] MEDS: ATORVASTATIN CALCIUM 40 MG TABLET PO SCH (22:17)
[2017-09-26] MEDS: MEROPENEM 1 GM in NORMAL SALINE 50 ML IV SCH ×3 (03:22→17:38)
[2017-09-26 05:07] LABS: MEAN CORPUSCULAR HEMOGLOBIN 28.4 pg (27.0-33.4); MEAN CORPUSCULAR HGB CONC 34.5 g/dL (32.0-36.0); MEAN CORPUSCULAR VOLUME 82 fl (80-97); PLATELET COUNT 101 10^3/uL (150-450); RED BLOOD COUNT 2.67 10^6/uL (3.72-5.28); RED CELL DISTRIBUTION WIDTH 14.4 % (11.5-14.0)
[2017-09-26 05:13] LABS: WHITE BLOOD COUNT 0.3 10^3/uL (4.0-10.5)
[2017-09-26 05:14] LABS: HEMOGLOBIN 7.6 g/dL (12.0-15.5)
[2017-09-26 05:24] LABS: ANION GAP 10 (5-19); BLOOD UREA NITROGEN 6 mg/dL (7-20); CALCIUM 8.3 mg/dL (8.4-10.2); CARBON DIOXIDE 25 mmol/L (22-30); CHLORIDE 104 mmol/L (98-107); CHOLESTEROL 118.34 mg/dL (0-200); GLUCOSE 112 mg/dL (75-110); POTASSIUM 4.1 mmol/L (3.6-5.0); SODIUM 139.4 mmol/L (137-145); TRIGLYCERIDES 106 mg/dL (<150)
[2017-09-26 05:35] LABS: DIRECT LDL 62 mg/dL (<100)
[2017-09-26] MEDS: MORPHINE SULFATE 10 MG/ML INJ IV PRN ×4 (06:09→18:06)
[2017-09-26] MEDS: VANCOMYCIN HCL 1,250 MG in DEXTROSE 5%-WATER 250 ML IV SCH ×3 (06:11→21:45)
[2017-09-26] MEDS: OXYCODONE-ACETAMINOPHEN 5-325 MG TABLET PO PRN ×4 (06:43→18:46)
[2017-09-26] MEDS: LACTOBACILLUS ACIDOPHILUS 250 MG TAB PO SCH ×2 (09:02→17:37)
[2017-09-26] MEDS: METOPROLOL SUCCINATE 25 MG TAB.SR.24H PO SCH ×2 (09:02→21:42)
[2017-09-26] MEDS: METOPROLOL TARTRATE PF/INJ 5 MG/5 ML SDV IV PRN ×6 (09:02→21:43)
[2017-09-26] MEDS: ENOXAPARIN SODIUM INJ 40 MG/0.4 ML DISP.SYRIN SUBCUT SCH (09:03)
[2017-09-26] MEDS: ACETAMINOPHEN 325 MG TABLET PO PRN ×2 (09:17→13:11)
[2017-09-26] MEDS: ONDANSETRON HCL INJ/PF 4 MG/2 ML SDV IV PRN (11:32)
[2017-09-26] MEDS: IBUPROFEN 400 MG TABLET PO PRN (11:37)
[2017-09-26] MEDS ORDERED: LACTULOSE SYRUP 20 GM/30 ML UDCUP PO ONE (14:15)
--- NOTE | 2017-09-26 14:39 | PDOC PROGRESS REPORT ---
Subjective Progress Note for:: 09/26/17 Subjective:: 37-year-old female with AML undergoing chemotherapy at [facility]. She presented to the hospital with chest pain and leukopenia. PA of the chest was negative for pulmonary embolism. Troponin went up as high as 3 and it was initially thought that she had a non- STEMI. The next day the patient developed high-grade fevers and was found to have pneumonia. Elevated troponins were secondary to sepsis from pneumonia. She was given one dose of Filgrastim 3 days ago Currently waiting transfer to [facility]. Cough chest pain and shortness of breath have improved. Reason For Visit: ,SEPSIS,PNA Physical Exam Vital Signs: Temp Pulse Resp BP Pulse Ox 102.7 F H 136 H 13 116/83 94 09/26/17 11:33 09/26/17 11:33 09/26/17 11:33 09/26/17 11:33 09/26/17 11:33 Intake & Output 09/25/17 09/26/17 09/27/17 06:59 06:59 06:59 Intake Total 4659 3777 100 Output Total 250 Balance 4659 3777 -150 Weight 73.6 kg 74.7 kg Results Laboratory Results: 09/26/17 04:40 09/26/17 04:40 09/26/17 09/26/17 04:40 04:40 WBC 0.3 L* RBC 2.67 L Hgb 7.6 L Hct 22.0 L MCV 82 MCH 28.4 MCHC 34.5 RDW 14.4 H Plt Count 101 L Sodium 139.4 Potassium 4.1 Chloride 104 Carbon Dioxide 25 Anion Gap 10 BUN 6 L Creatinine 0.51 L Est GFR ( Amer) > 60 Est GFR (Non-Af Amer) > 60 Glucose 112 H Calcium 8.3 L Triglycerides 106 Cholesterol 118.34 LDL Cholesterol Direct 62 VLDL Cholesterol 21.0 HDL Cholesterol 25 L 09/23/17 09/24/17 21:10 03:11 Troponin I 1.190 1.260 Impressions: Chest/Abdomen CTA 09/23/17 13:06 IMPRESSION: NORMAL CTA OF THE CHEST. NO PULMONARY EMBOLI. Chest X-Ray 09/25/17 00:00 IMPRESSION: Right lower lobe pneumonia. Assessment & Plan - Diagnosis (1) Elevated troponin I level Is this a current diagnosis for this admission?: Yes Plan: [place] to be secondary to sepsis. Cardiology input appreciated (2) Neutropenia Qualifiers: Neutropenia type: secondary to cancer chemotherapy Qualified Code(s): D70.1 - Agranulocytosis secondary to cancer chemotherapy; T45.1X5A - Adverse effect of antineoplastic and immunosuppressive drugs, initial encounter; T45.1X5A - Adverse effect of antineoplastic and immunosuppressive drugs, initial encounter Is this a current diagnosis for this admission?: Yes Plan: Continue to monitor. Neutropenic precautions (3) PNA (pneumonia) Qualifiers: Pneumonia type: due to unspecified organism Laterality: right Lung location: lower lobe of lung Qualified Code(s): J18.1 - Lobar pneumonia, unspecified organism Is this a current diagnosis for this admission?: Yes Plan: Day 3 of Vancomycin and Meropenem. (4) Sepsis Qualifiers: Sepsis type: sepsis due to unspecified organism Qualified Code(s): A41.9 - Sepsis, unspecified organism Is this a current diagnosis for this admission?: Yes Plan: Due to pneumonia. Improving Continue antibiotics (5) Acute myeloid leukemia Qualifiers: Leukemia Active/Remission status: without remission Qualified Code(s): C92.00 - Acute myeloblastic leukemia, not having achieved remission Is this a current diagnosis for this admission?: Yes Plan: Plan to transfer to [facility] once bed is available - Time Time Spent with patient: 35 or more minutes
[2017-09-26 14:43] LABS: VANCOMYCIN,TROUGH < 5.0 ug/mL (5.0-20.0)
[2017-09-26] MEDS: NORMAL SALINE 1000 ML 1,000 ML IV PRN (16:59)
--- NOTE | 2017-09-26 21:38 | PDOC PROGRESS REPORT ---
Subjective Progress Note for:: 09/26/17 Subjective:: Asked to see because patient is continuing to be tachycardic. Patient seems to be doing better with gradual improvement. Patient is still having some intermittent sharp chest pain. This is pleuritic in nature. These had resolved by pain medication. Patient claims that she hurts more when she is tachycardic but tachycardia could be a response to pain. Patient denying any PND, orthopnea. Patient denied any sustained palpitations, dizziness, syncope, near syncope. Patient denying any fever chills. Patient denying any other significant discomfort. Patient is maintaining sinus rhythm. Review of systems: Rest review of systems negative. Medications: Medications have been reviewed. Reason For Visit: NSTEMI,SEPSIS,PNA Physical Exam Vital Signs: Temp Pulse Resp BP Pulse Ox 101.0 F H 138 H 18 108/65 95 09/26/17 07:36 09/26/17 07:36 09/26/17 07:36 09/26/17 07:36 09/26/17 07:57 Intake & Output 09/25/17 09/26/17 09/27/17 06:59 06:59 06:59 Intake Total 4659 3777 Balance 4659 3777 Weight 73.6 kg 74.7 kg Exam: GENERAL: well-nourished and in no acute distress. Alert and oriented x3 HEAD: Atraumatic, normocephalic. EYES: Pupils equal round and reactive to light, extraocular movements intact, sclera anicteric, conjunctiva are normal. ENT: TMs normal, nares patent, oropharynx clear without exudates. Moist mucous membranes. No oral ulcerations or bleeding gums noted NECK: supple without lymphadenopathy. Trachea is central. No cervical or axillary lymphadenopathy noted. Carotids are 2+, JVD WNL LUNGS: Respiration seems nonlabored, no significant accessory muscle action noted. Breath sounds clear to auscultation bilaterally and equal noted. No wheezes rales or rhonchi noted. No significant dullness noted on percussion. CHEST: Palpation of the chest wall shows mild chest wall tenderness. 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 ABDOMEN: Soft, no significant tenderness appreciated, normoactive bowel sounds. No guarding, no rebound. No rigidity noted . No masses appreciated. EXTREMITIES: Pedal pulses are 1-2+, no calf tenderness noted. No clubbing or cyanosis. negative pedal edema noted NEUROLOGICAL: Focused neurological exam showed no significant neurologic deficit. Normal speech, no focal weakness appreciated. PSYCH: Normal mood, normal affect. Judgment and insight within normal limits. SKIN: No significant ecchymosis, skin is noted to be warm. MUSCULOSKELETAL EXAM: No significant acute joint swelling noted. Results Laboratory Results: 09/26/17 04:40 09/26/17 04:40 09/26/17 09/26/17 04:40 04:40 WBC 0.3 L* RBC 2.67 L Hgb 7.6 L Hct 22.0 L MCV 82 MCH 28.4 MCHC 34.5 RDW 14.4 H Plt Count 101 L Sodium 139.4 Potassium 4.1 Chloride 104 Carbon Dioxide 25 Anion Gap 10 BUN 6 L Creatinine 0.51 L Est GFR ( Amer) > 60 Est GFR (Non-Af Amer) > 60 Glucose 112 H Calcium 8.3 L Triglycerides 106 Cholesterol 118.34 LDL Cholesterol Direct 62 VLDL Cholesterol 21.0 HDL Cholesterol 25 L 09/23/17 09/24/17 21:10 03:11 Troponin I 1.190 1.260 Impressions: Chest/Abdomen CTA 09/23/17 13:06 IMPRESSION: NORMAL CTA OF THE CHEST. NO PULMONARY EMBOLI. Chest X-Ray 09/25/17 00:00 IMPRESSION: Right lower lobe pneumonia. Assessment & Plan - Diagnosis (1) Elevated troponin I level Is this a current diagnosis for this admission?: Yes (2) NSTEMI (non-ST elevated myocardial infarction) Is this a current diagnosis for this admission?: Yes (3) Neutropenia Qualifiers: Neutropenia type: secondary to cancer chemotherapy Qualified Code(s): D70.1 - Agranulocytosis secondary to cancer chemotherapy; T45.1X5A - Adverse effect of antineoplastic and immunosuppressive drugs, initial encounter; T45.1X5A - Adverse effect of antineoplastic and immunosuppressive drugs, initial encounter Is this a current diagnosis for this admission?: Yes (4) Sepsis Qualifiers: Sepsis type: sepsis due to unspecified organism Qualified Code(s): A41.9 - Sepsis, unspecified organism Is this a current diagnosis for this admission?: Yes (5) Anemia Qualifiers: Anemia type: unspecified type Qualified Code(s): D64.9 - Anemia, unspecified Is this a current diagnosis for this admission?: Yes (6) Acute myeloid leukemia Qualifiers: Leukemia Active/Remission status: without remission Qualified Code(s): C92.00 - Acute myeloblastic leukemia, not having achieved remission Is this a current diagnosis for this admission?: Yes - Notes Notes: Cardiac enzyme levels are trending down. Patient is noted to be tachycardic for which patient was placed on increased dose of beta-bailey. Patient also on IV Lopressor as needed basis for heart rate over 120. Patient still running moderate grade fever. Patient still awaiting a bed for transfer To tertiary care. Elevated troponin I level: Most likely related to supply demand mismatch. Cannot rule out false elevation due to acute myeloid leukemia. Possibly also could be from sepsis. Non-STEMI: Patient has chest pain, atypical, positive troponin I. Possibly related to acute myeloid leukemia, sepsis etc. causing supply demand mismatch, micro emboli etc. Low probability of significant CAD at patient's age and no prior history of CAD. EKG obtained was nonacute. Neutropenia: Patient to undergo neutropenia prophylaxis. Sepsis: Patient may have underlying sepsis. Continue antibiotic therapy. Anemia: Currently stable. Transfuse as needed. Acute myeloid leukemia: Patient currently very neutropenic and is status post chemotherapy. Feel that patient will benefit from transfer to tertiary care for this reason. Tachycardia: This is mostly related to metabolic problem, anemia, sepsis etc. Patient however placed on beta-bailey since tachycardia was felt to be somewhat also inappropriate. Patient to report any further problems - Time Time with patient: Greater than 35 minutes - CODE STATUS was discussed, patient remains full code. More than 50% of the time spent coordinating care, discussing management plans with involved caregivers. Management plans discussed with involved personnels. Medical decision making was of moderate to high complexity, patient's has multiple comorbidities. Medications reviewed and adjusted accordingly: Yes
[2017-09-27] MEDS: MORPHINE SULFATE 10 MG/ML INJ IV PRN ×7 (01:02→21:13)
[2017-09-27] MEDS: MEROPENEM 1 GM in NORMAL SALINE 50 ML IV SCH ×3 (01:05→17:58)
[2017-09-27] MEDS: ONDANSETRON HCL INJ/PF 4 MG/2 ML SDV IV PRN ×2 (01:56→21:13)
[2017-09-27] MEDS: METOPROLOL TARTRATE PF/INJ 5 MG/5 ML SDV IV PRN ×6 (02:08→19:38)
[2017-09-27] MEDS: OXYCODONE-ACETAMINOPHEN 5-325 MG TABLET PO PRN (02:11)
[2017-09-27 04:14] LABS: ABSOLUTE NEUT (AUTO) 0.3 10^3/uL (1.7-8.2); BASOPHILS % (AUTO) 0.7 % (0-2); EOSINOPHILS % (AUTO) 0.8 % (0-6); HEMATOCRIT 18.6 % (36.0-47.0); LYMPHOCYTES % (AUTO) 8.5 % (13-45); MEAN CORPUSCULAR HGB CONC 34.9 g/dL (32.0-36.0); MEAN CORPUSCULAR VOLUME 83 fl (80-97); PLATELET COUNT 110 10^3/uL (150-450); RED BLOOD COUNT 2.23 10^6/uL (3.72-5.28); RED CELL DISTRIBUTION WIDTH 14.2 % (11.5-14.0); TOTAL CELLS COUNTED % (AUTO) 100 %
[2017-09-27 04:27] LABS: ANION GAP 12 (5-19); BLOOD UREA NITROGEN 7 mg/dL (7-20); CALCIUM 7.9 mg/dL (8.4-10.2); CARBON DIOXIDE 25 mmol/L (22-30); CHLORIDE 102 mmol/L (98-107); GLUCOSE 127 mg/dL (75-110); PHOSPHORUS 3.4 mg/dL (2.5-4.5); POTASSIUM 3.5 mmol/L (3.6-5.0); SODIUM 138.9 mmol/L (137-145)
[2017-09-27 04:36] LABS: HEMOGLOBIN 6.5 g/dL (12.0-15.5)
[2017-09-27 04:37] LABS: ANISOCYTOSIS SLIGHT; PLATELET LARGE PRESENT; POLYCHROMASIA SLIGHT; WHITE BLOOD COUNT 0.4 10^3/uL (4.0-10.5)
[2017-09-27 04:38] LABS: PLATELET COMMENT DECREASED
[2017-09-27] MEDS: VANCOMYCIN HCL 1,250 MG in DEXTROSE 5%-WATER 250 ML IV SCH (05:08)
[2017-09-27] MEDS: NORMAL SALINE 1000 ML 1,000 ML IV PRN (05:15)
[2017-09-27] MEDS ORDERED: NORMAL SALINE 250 ML IV PRN (07:37)
[2017-09-27] MEDS ORDERED: MORPHINE SULFATE 10 MG/ML INJ IV PRN (07:54)
[2017-09-27] MEDS ORDERED: OXYCODONE HCL SR 10 MG TABLET PO ONE (08:00)
--- NOTE | 2017-09-27 08:56 | EKG REPORT ---
SEVERITY:- ABNORMAL ECG - SINUS TACHYCARDIA LEFT AXIS DEVIATION ST ELEVATION ANTEROLATERAL LEADS, , CLINICAL CORRELATION AND BIOMARKERS NEEDED. : Confirmed by: Major Gurrola MD 27-Sep-2017 08:56:08
[2017-09-27] MEDS: METOPROLOL SUCCINATE 25 MG TAB.SR.24H PO SCH (09:18)
[2017-09-27] MEDS: LACTOBACILLUS ACIDOPHILUS 250 MG TAB PO SCH ×2 (09:18→17:57)
[2017-09-27] MEDS: LACTULOSE SYRUP 20 GM/30 ML UDCUP PO SCH ×2 (09:19→18:00)
[2017-09-27] MEDS: ACETAMINOPHEN 325 MG TABLET PO PRN ×3 (09:33→21:23)
[2017-09-27] MEDS ORDERED: GUAIFENESIN 600 MG TABLET.SA PO ONE (11:00)
[2017-09-27] MEDS: OXYCODONE HCL IR 5 MG TABLET PO PRN ×4 (11:01→23:53)
--- NOTE | 2017-09-27 11:29 | RADIOLOGY REPORT (SQ) ---
EXAM DESCRIPTION: CHEST 2 VIEWS COMPLETED DATE/TIME: 09/27/2017 11:08 am REASON FOR STUDY: chest pain COMPARISON: 09/25/2017 EXAM PARAMETERS: NUMBER OF VIEWS: two views TECHNIQUE: Digital Frontal and Lateral radiographic views of the chest acquired. RADIATION DOSE: NA LIMITATIONS: none FINDINGS: LUNGS AND PLEURA: Bibasilar opacities increased over the previous study. Small right effu nhung. No pneumothorax. MEDIASTINUM AND HILAR STRUCTURES: No masses or contour abnormalities. HEART AND VASCULAR STRUCTURES: Heart normal size. No evidence for failure. BONES: No acute findings. HARDWARE: Venous access catheter unchanged. OTHER: No other significant finding. IMPRESSION: Bibasilar opacities increased over the previous study. Small right effusion. TECHNICAL DOCUMENTATION: JOB ID: [id number] [employer]- All Rights Reserved Reading location - IP/workstation name: [email or web address]
--- NOTE | 2017-09-27 11:32 | PDOC PROGRESS REPORT ---
Subjective Progress Note for:: 09/27/17 Subjective:: Asked to see because patient is continuing to be tachycardic. Patient continues to have chest pain for which she is on narcotics and it relieved by narcotics. Patient seems to be doing better with gradual improvement. Patient is still having some intermittent sharp chest pain. These are increased by taking a deep breath. These had resolved by pain medication. Patient claims that she hurts more when she is tachycardic but tachycardia could be a response to pain. Patient denying any PND, orthopnea. Patient denied any sustained palpitations , dizziness, syncope, near syncope. Patient denying any fever chills. Patient denying any other significant discomfort. Patient is maintaining sinus rhythm. Sinus tachycardia noted. Review of systems: Rest review of systems negative. Medications: Medications have been reviewed. Reason For Visit: NSTEMI,SEPSIS,PNA Physical Exam Vital Signs: Temp Pulse Resp BP Pulse Ox 100.8 F H 142 H 17 121/83 94 09/27/17 07:23 09/27/17 07:23 09/27/17 07:23 09/27/17 07:23 09/27/17 07:23 Intake & Output 09/26/17 09/27/17 09/28/17 06:59 06:59 06:59 Intake Total 3777 2927 Output Total 250 Balance 3777 2677 Weight 74.7 kg 75 kg Exam: GENERAL: well-nourished and in no acute distress. Alert and oriented x3 HEAD: Atraumatic, normocephalic. EYES: Pupils equal round and reactive to light, extraocular movements intact, sclera anicteric, conjunctiva are normal. ENT: TMs normal, nares patent, oropharynx clear without exudates. Moist mucous membranes. No oral ulcerations or bleeding gums noted NECK: supple without lymphadenopathy. Trachea is central. No cervical or axillary lymphadenopathy noted. Carotids are 2+, JVD WNL LUNGS: Respiration seems nonlabored, no significant accessory muscle action noted. Breath sounds clear to auscultation bilaterally and equal noted. No wheezes rales or rhonchi noted. No significant dullness noted on percussion. CHEST: Palpation of the chest wall shows positive chest wall tenderness. HEART: [employer], No PSH, 1/6 GOPAL aortic area, 1/6 manning systolic murmur mitral area, no rubs, no gallops. ABDOMEN: Soft, no significant tenderness appreciated, normoactive bowel sounds. No guarding, no rebound. No rigidity noted . No masses appreciated. EXTREMITIES: Pedal pulses are 1-2+, no calf tenderness noted. No clubbing or cyanosis. negative pedal edema noted NEUROLOGICAL: Focused neurological exam showed no significant neurologic deficit. Normal speech, no focal weakness appreciated. PSYCH: Normal mood, normal affect. Judgment and insight within normal limits. SKIN: No significant ecchymosis, skin is noted to be warm. MUSCULOSKELETAL EXAM: No significant acute joint swelling noted. Results Laboratory Results: 09/27/17 04:00 09/27/17 04:00 09/27/17 09/27/17 09/27/17 04:00 04:00 05:05 WBC 0.4 L* RBC 2.23 L Hgb 6.5 L Hct 18.6 L MCV 83 MCH 29.0 MCHC 34.9 RDW 14.2 H Plt Count 110 L Seg Neutrophils % 84.0 H Lymphocytes % 8.5 L Monocytes % 6.0 Eosinophils % 0.8 Basophils % 0.7 Absolute Neutrophils 0.3 L Absolute Lymphocytes 0.0 L Absolute Monocytes 0.0 L Absolute Eosinophils 0.0 Absolute Basophils 0.0 Sodium 138.9 Potassium 3.5 L Chloride 102 Carbon Dioxide 25 Anion Gap 12 BUN 7 Creatinine 0.64 Est GFR ( Amer) > 60 Est GFR (Non-Af Amer) > 60 Glucose 127 H Calcium 7.9 L Phosphorus 3.4 Magnesium 2.2 Blood Type O POSITIVE Antibody Screen NEGATIVE 09/23/17 09/24/17 21:10 03:11 Troponin I 1.190 1.260 Impressions: Chest/Abdomen CTA 09/23/17 13:06 IMPRESSION: NORMAL CTA OF THE CHEST. NO PULMONARY EMBOLI. Assessment & Plan - Diagnosis (1) Elevated troponin I level Is this a current diagnosis for this admission?: Yes (2) NSTEMI (non-ST elevated myocardial infarction) Is this a current diagnosis for this admission?: Yes (3) Neutropenia Qualifiers: Neutropenia type: secondary to cancer chemotherapy Qualified Code(s): D70.1 - Agranulocytosis secondary to cancer chemotherapy; T45.1X5A - Adverse effect of antineoplastic and immunosuppressive drugs, initial encounter; T45.1X5A - Adverse effect of antineoplastic and immunosuppressive drugs, initial encounter Is this a current diagnosis for this admission?: Yes (4) Sepsis Qualifiers: Sepsis type: sepsis due to unspecified organism Qualified Code(s): A41.9 - Sepsis, unspecified organism Is this a current diagnosis for this admission?: Yes (5) Anemia Qualifiers: Anemia type: unspecified type Qualified Code(s): D64.9 - Anemia, unspecified Is this a current diagnosis for this admission?: Yes (6) Acute myeloid leukemia Qualifiers: Leukemia Active/Remission status: without remission Qualified Code(s): C92.00 - Acute myeloblastic leukemia, not having achieved remission Is this a current diagnosis for this admission?: Yes - Notes Notes: EKG from this morning showed some new changes. Patient is noted to be tachycardic for which patient was placed on increased dose of beta-bailey. Patient being placed on metoprolol succinate 50 mg p.o. every 12. Patient still awaiting a bed for transfer To tertiary care. Elevated troponin I level: Most likely related to supply demand mismatch. Cannot rule out false elevation due to acute myeloid leukemia. Possibly also could be from sepsis. Doubt acute coronary syndrome but cannot rule this out. Have obtained another set of cardiac enzymes. If this is going up, will recommend transfer for heart catheterization. Non-STEMI: Patient has chest pain, atypical, positive troponin I. Possibly related to acute myeloid leukemia, sepsis etc. causing supply demand mismatch, micro emboli etc. Neutropenia: Patient to undergo neutropenia prophylaxis. Sepsis: Patient may have underlying sepsis. Continue antibiotic therapy. Anemia: Currently stable. Transfuse as needed. Patient scheduled to get 2 units of blood transfusion. Rule out occult bleeding. Acute myeloid leukemia: Patient currently very neutropenic and is status post chemotherapy. Feel that patient will benefit from transfer to tertiary care for this reason. Tachycardia: This is mostly related to metabolic problem, anemia, sepsis etc. Patient however placed on beta-bailey since tachycardia was felt to be somewhat also inappropriate. Metoprolol succinate dose is being increased. Patient on additional as needed IV Lopressor. Patient to report any further problems - Time Time with patient: Greater than 35 minutes - More than 50% of the time spent coordinating care, discussing management plans with involved caregivers. Management plans discussed with involved personnels. Medical decision making was of moderate to high complexity, patient's has multiple comorbidities. Medications reviewed and adjusted accordingly: Yes
--- NOTE | 2017-09-27 12:25 | PDOC CONSULTATION ---
Consultation Consult Date: 09/27/17 Attending physician:: ROSETTA CARBAJAL Consult reason:: Pancytopenia related to AML and recent treatment, persistent fevers History of Present Illness Admission Date/PCP: 09/23/17 16:36 Patient complains of: Fever, chest pain, shortness of breath History of Present Illness: JENNIFER AGUILAR is a 37 year old female with known history of AML, she was originally diagnosed about 2 years ago, at that time she had bone marrow biopsy and thereafter she had induction chemotherapy, and she was placed on consolidation chemotherapy thereafter. Unfortunately, she was never able to be brought into remission, and the last 2 months her counts worsened, and she was placed on the new chemotherapeutic oral agent Venetoclax, she was admitted on 09/23/2017. She was found to be hypotensive tachycardic, febrile and there was concern of sepsis, she had blood cultures drawn, she was placed on broad- spectrum antibiotics initially with Zosyn and vancomycin and then transition to meropenem and vancomycin. She was planned for transfer to [facility] hematology service but unfortunately there is not been a bed available, I did call the transfer center this morning and there is still no beds. But she has been persistently febrile for 4 days, fever was 102 as early as 12 hours ago. This morning she is having some chest pain, hemoglobin is fallen down to 6.5. 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 Of note I had a long discussion with her treating oncologist at [facility], Dr. Earl Tinajero, unfortunately this patient has never been in remission, until she gets into a remission she is not a transplant candidate, so he noted this chemotherapy with venetoclax was palliative in nature, he noted the fevers could be related to persistent AML, although the patient tells me the fevers really only started 24 hours prior to admission, although the pancytopenia worsened 2 months ago she did not have fevers then. He also noted that we have not had antifungal coverage on board, so he suggested voriconazole. He also suggested treating the Gardnerella vaginalis, standard treatment for that would be metronidazole and I have added that on. I discussed with pharmacy and added both of these medications on at appropriate doses. Of note her hemoglobin is fallen to 6.5 and she is symptomatic, we have ordered leuko-reduced and irradiated blood products. Past Medical History Cardiac Medical History: Reports: None Pulmonary Medical History: Reports: Pneumonia EENT Medical History: Reports: None Neurological Medical History: Reports: None Endocrine Medical History: Reports: None Malignancy Medical History: Reports: Leukemia - AML GI Medical History: Reports: None Musculoskeltal Medical History: Reports: None Skin Medical History: Reports: None Psychiatric Medical History: Reports: None Traumatic Medical History: Reports: None Hematology: Reports: Anemia Infectious Medical History: Reports: None Past Surgical History Past Surgical History: Reports: Section - x2, Herniorrhaphy, Tubal Ligation, Other - Ventral hernia and a right-sided Port-A-Cath Social History Lives with: Family Smoking Status: Former Smoker Frequency of Alcohol Use: None Hx Recreational Drug Use: No Drugs: Marijuana Hx Prescription Drug Abuse: No - Advance Directive Resuscitation Status: Full Code Family History Family History: COPD, CVA, Hypertension, Malignancy Parental Family History Reviewed: Yes Children Family History Reviewed: Yes Sibling(s) Family History Reviewed.: Yes Medication/Allergy Home Medications: Allopurinol [Zyloprim 300 mg Tablet] 300 mg PO DAILY 09/23/17 Levofloxacin [Levaquin 500 mg Tablet] 500 mg PO DAILY 09/23/17 Oxycodone HCl [Oxycontin] 10 mg PO Q12 09/23/17 Posaconazole [Noxafil] 300 mg PO DAILY 09/23/17 Prednisone [Deltasone 10 mg Tablet] 50 mg PO DAILY 09/23/17 Venetoclax [Venclexta] 100 mg PO [id number] 09/23/17 Allergies/Adverse Reactions: naproxen [From Aleve] Allergy (Intermediate, Verified 09/23/17 12:29) Hives Review of Systems Constitutional: PRESENT: anorexia, chills, fatigue, fever(s), weakness Cardiovascular: PRESENT: chest pain, dyspnea on exertion Respiratory: PRESENT: dyspnea Gastrointestinal: ABSENT: abdominal pain, constipation, diarrhea, hematemesis, hematochezia, nausea, vomiting Integumentary: ABSENT: rash, wounds Neurological: ABSENT: abnormal gait, abnormal speech, confusion, dizziness, focal weakness, syncope Endocrine: ABSENT: cold intolerance, heat intolerance, polydipsia, polyuria Physical Exam Vital Signs: Temp Pulse Resp BP Pulse Ox 100.8 F H 142 H 17 121/83 94 09/27/17 07:23 09/27/17 07:23 09/27/17 07:23 09/27/17 07:23 09/27/17 07:23 Intake & Output 09/26/17 09/27/17 09/28/17 06:59 06:59 06:59 Intake Total 3777 2927 Output Total 250 Balance 3777 2677 Weight 74.7 kg 75 kg General appearance: PRESENT: no acute distress, well-developed, well-nourished Head exam: PRESENT: atraumatic, normocephalic Eye exam: PRESENT: conjunctiva pink, EOMI, PERRLA. ABSENT: scleral icterus Ear exam: PRESENT: normal external ear exam Mouth exam: PRESENT: moist, tongue midline Neck exam: ABSENT: carotid bruit, JVD, lymphadenopathy, thyromegaly Respiratory exam: PRESENT: clear to auscultation sunil. ABSENT: rales, rhonchi, wheezes Cardiovascular exam: PRESENT: RRR. ABSENT: diastolic murmur, rubs, systolic murmur Pulses: PRESENT: normal dorsalis pedis pul Vascular exam: PRESENT: normal capillary refill GI/Abdominal exam: PRESENT: normal bowel sounds, soft. ABSENT: distended, guarding, mass, organolmegaly, rebound, tenderness Rectal exam: PRESENT: deferred Extremities exam: PRESENT: full ROM. ABSENT: calf tenderness, clubbing, pedal edema Neurological exam: PRESENT: alert, awake, oriented to person, oriented to place , oriented to time, oriented to situation, CN II-XII grossly intact. ABSENT: motor sensory deficit Psychiatric exam: PRESENT: appropriate affect, normal mood. ABSENT: homicidal ideation, suicidal ideation Skin exam: PRESENT: dry, intact, warm. ABSENT: cyanosis, rash Results Laboratory Results: 09/27/17 04:00 09/27/17 04:00 09/27/17 09/27/17 09/27/17 04:00 04:00 05:05 WBC 0.4 L* RBC 2.23 L Hgb 6.5 L Hct 18.6 L MCV 83 MCH 29.0 MCHC 34.9 RDW 14.2 H Plt Count 110 L Seg Neutrophils % 84.0 H Lymphocytes % 8.5 L Monocytes % 6.0 Eosinophils % 0.8 Basophils % 0.7 Absolute Neutrophils 0.3 L Absolute Lymphocytes 0.0 L Absolute Monocytes 0.0 L Absolute Eosinophils 0.0 Absolute Basophils 0.0 Sodium 138.9 Potassium 3.5 L Chloride 102 Carbon Dioxide 25 Anion Gap 12 BUN 7 Creatinine 0.64 Est GFR ( Amer) > 60 Est GFR (Non-Af Amer) > 60 Glucose 127 H Calcium 7.9 L Phosphorus 3.4 Magnesium 2.2 Blood Type O POSITIVE Antibody Screen NEGATIVE 09/23/17 09/24/17 21:10 03:11 Troponin I 1.190 1.260 Impressions: Chest/Abdomen CTA 09/23/17 13:06 IMPRESSION: NORMAL CTA OF THE CHEST. NO PULMONARY EMBOLI. Chest X-Ray 09/27/17 00:00 IMPRESSION: Bibasilar opacities increased over the previous study. Small right effusion. Status: Image reviewed by me Assessment & Plan - Diagnosis (1) Sepsis Qualifiers: Sepsis type: sepsis due to unspecified organism Qualified Code(s): A41.9 - Sepsis, unspecified organism Is this a current diagnosis for this admission?: Yes Plan: Sepsis secondary to unknown organism, may be fungal at this point, as noted above I will add on antifungal coverage with voriconazole, I have added treatment for the Gardnerella vaginalis with Flagyl. I placed a infectious disease consult as well. I discussed her case with her treating oncologist, Dr. Tinajero in [facility] for these changes. I discussed with the transfer center and there is still no open bed so we may be treating this patient for several more days. (2) Anemia Qualifiers: Anemia type: bone marrow failure Bone marrow failure anemia type: other bone marrow failure Qualified Code(s): D61.89 - Other specified aplastic anemias and other bone marrow failure syndromes Is this a current diagnosis for this admission?: Yes Plan: Secondary to AML most likely, as well as possibly drug-induced, she will need 2 units of leuko-reduced and irradiated units, this is ordered. (3) Acute myeloid leukemia Qualifiers: Leukemia Active/Remission status: without remission Qualified Code(s): C92.00 - Acute myeloblastic leukemia, not having achieved remission Is this a current diagnosis for this admission?: Yes Plan: Never in remission unfortunately, current treatment is palliative in nature. However, patient still wants to be aggressive with treatment, at present, however, I will hold the venetoclax - Time Time Spent: Greater than 70 Minutes - Inpatient Certification Based on my medical assessment, after consideration of the patient's comorbidities, presenting symptoms, or acuity I expect that the services needed warrant INPATIENT care.: Yes I certify that my determination is in accordance with my understanding of Medicare's requirements for reasonable and necessary INPATIENT services [42 CFR 412.3e].: Yes Medical Necessity: Need For Continuous Telemetry Monitoring, Need for IV Antibiotics, Risk of Complication if Not Cared For in Hospital
[2017-09-27] MEDS: VANCOMYCIN HCL 1,500 MG in DEXTROSE 5%-WATER 250 ML IV SCH ×2 (12:30→17:58)
[2017-09-27 12:38] LABS: CREATINE KINASE MB 0.27 ng/mL (<4.55)
[2017-09-27 12:47] LABS: TROPONIN I 0.275 ng/mL
--- NOTE | 2017-09-27 13:33 | PDOC PROGRESS REPORT ---
Subjective Progress Note for:: 09/27/17 Subjective:: 37-year-old female with AML undergoing chemotherapy at [facility]. She presented to the hospital with chest pain and leukopenia. PA of the chest was negative for pulmonary embolism. Troponin went up as high as 3 and it was initially thought that she had a non- STEMI. The next day the patient developed high-grade fevers and was found to have pneumonia. Elevated troponins were secondary to sepsis from pneumonia. She was given one dose of Filgrastim 3 days ago The patient has chest pain and EKG showed possible mild ST changes in the anterolateral leads. Chest X ray done today shows bibasilar infiltrates and a small right-sided pleural effusion. Troponin is 0.27 which is trending down. She was evaluated by Dr. Beltran from the oncology service. He recommended Voriconazole to cover for possible fungal infection. 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 Hemoglobin is low. This is secondary to heavy bleeding from her periods. She has been ordered 2 units of packed red blood cells. Chest pain is felt to be most likely pleuritic in nature secondary to pneumonia. Reason For Visit: NSTEMI,SEPSIS,PNA Physical Exam Vital Signs: Temp Pulse Resp BP Pulse Ox 100.8 F H 142 H 17 121/83 94 09/27/17 07:23 09/27/17 07:23 09/27/17 07:23 09/27/17 07:23 09/27/17 07:23 Intake & Output 09/26/17 09/27/17 09/28/17 06:59 06:59 06:59 Intake Total 3777 2927 Output Total 250 Balance 3777 0199 Weight 74.7 kg 75 kg General appearance: PRESENT: mild distress Head exam: PRESENT: normocephalic Eye exam: PRESENT: EOMI Ear exam: PRESENT: TM's normal bilaterally Mouth exam: PRESENT: moist Respiratory exam: PRESENT: rhonchi, symmetrical, unlabored Cardiovascular exam: PRESENT: RRR GI/Abdominal exam: PRESENT: normal bowel sounds, soft. ABSENT: tenderness Extremities exam: ABSENT: calf tenderness Musculoskeletal exam: PRESENT: normal inspection Neurological exam: PRESENT: alert, awake, oriented to person, oriented to place , oriented to time, oriented to situation Psychiatric exam: PRESENT: appropriate affect Skin exam: ABSENT: petechiae Results Laboratory Results: 09/27/17 04:00 09/27/17 04:00 09/27/17 09/27/17 09/27/17 04:00 04:00 05:05 WBC 0.4 L* RBC 2.23 L Hgb 6.5 L Hct 18.6 L MCV 83 MCH 29.0 MCHC 34.9 RDW 14.2 H Plt Count 110 L Seg Neutrophils % 84.0 H Lymphocytes % 8.5 L Monocytes % 6.0 Eosinophils % 0.8 Basophils % 0.7 Absolute Neutrophils 0.3 L Absolute Lymphocytes 0.0 L Absolute Monocytes 0.0 L Absolute Eosinophils 0.0 Absolute Basophils 0.0 Sodium 138.9 Potassium 3.5 L Chloride 102 Carbon Dioxide 25 Anion Gap 12 BUN 7 Creatinine 0.64 Est GFR ( Amer) > 60 Est GFR (Non-Af Amer) > 60 Glucose 127 H Calcium 7.9 L Phosphorus 3.4 Magnesium 2.2 Blood Type O POSITIVE Antibody Screen NEGATIVE 09/23/17 09/24/17 09/27/17 21:10 03:11 11:41 Creatine Kinase 47 CK-MB (CK-2) Troponin I 1.190 1.260 09/27/17 11:41 Creatine Kinase CK-MB (CK-2) 0.27 Troponin I 0.275 Impressions: Chest/Abdomen CTA 09/23/17 13:06 IMPRESSION: NORMAL CTA OF THE CHEST. NO PULMONARY EMBOLI. Chest X-Ray 09/27/17 00:00 IMPRESSION: Bibasilar opacities increased over the previous study. Small right effusion. Assessment & Plan - Diagnosis (1) Elevated troponin I level Is this a current diagnosis for this admission?: Yes Plan: Secondary to sepsis. (2) Neutropenia Qualifiers: Neutropenia type: secondary to cancer chemotherapy Qualified Code(s): D70.1 - Agranulocytosis secondary to cancer chemotherapy; T45.1X5A - Adverse effect of antineoplastic and immunosuppressive drugs, initial encounter; T45.1X5A - Adverse effect of antineoplastic and immunosuppressive drugs, initial encounter Is this a current diagnosis for this admission?: Yes Plan: Continue to monitor. Neutropenic precautions (3) PNA (pneumonia) Qualifiers: Pneumonia type: due to unspecified organism Laterality: right Lung location: lower lobe of lung Qualified Code(s): J18.1 - Lobar pneumonia, unspecified organism Is this a current diagnosis for this admission?: Yes Plan: Day 4 of Vancomycin and Meropenem. Voriconazole added (4) Sepsis Qualifiers: Sepsis type: sepsis due to unspecified organism Qualified Code(s): A41.9 - Sepsis, unspecified organism Is this a current diagnosis for this admission?: Yes Plan: Due to pneumonia. Continue antibiotics. (5) Acute myeloid leukemia Qualifiers: Leukemia Active/Remission status: without remission Qualified Code(s): C92.00 - Acute myeloblastic leukemia, not having achieved remission Is this a current diagnosis for this admission?: Yes Plan: Awaiting transfer to [facility] once bed is available - Time Time Spent with patient: 35 or more minutes
[2017-09-27] MEDS: METRONIDAZOLE 500 MG/NS RTU 100 ML IV SCH (13:40)
--- NOTE | 2017-09-27 18:53 | PDOC TRANSFER SUMMARY ---
General Admission Date/PCP: 09/23/17 16:36 Admission Date: 09/23/17 Transfer Date: 09/24/17 - Dr Turcios Accepting Facility: [facility] Resuscitation Status: Full Code - Transfer Diagnosis (1) Sepsis Is this a current diagnosis for this admission?: Yes (2) Elevated troponin I level Is this a current diagnosis for this admission?: Yes (3) Neutropenia Is this a current diagnosis for this admission?: Yes (4) PNA (pneumonia) Is this a current diagnosis for this admission?: Yes (5) Acute myeloid leukemia Is this a current diagnosis for this admission?: Yes (6) Anemia Is this a current diagnosis for this admission?: Yes Diagnosis Summary: One unit PRBC transfused. One more unit pending for today. Was having heavy periods - Transfer Medications Home Medications: Allopurinol [Zyloprim 300 mg Tablet] 300 mg PO DAILY 09/23/17 Levofloxacin [Levaquin 500 mg Tablet] 500 mg PO DAILY 09/23/17 Oxycodone HCl [Oxycontin] 10 mg PO Q12 09/23/17 Posaconazole [Noxafil] 300 mg PO DAILY 09/23/17 Prednisone [Deltasone 10 mg Tablet] 50 mg PO DAILY 09/23/17 Venetoclax [Venclexta] 100 mg PO [id number] 09/23/17 Transfer Medications: Current Medications Acetaminophen (Tylenol 325 Mg Tablet) 325 mg PO Q4HP PRN PRN Reason: FOR PAIN OR TEMP Stop: 10/23/17 15:39 Last Admin: 09/27/17 15:35 Dose: 325 mg Guaifenesin (Mucinex Sr 600 Mg Tablet.Sa) 1,200 mg PO Q12 [facility] Stop: 10/27/17 21:59 Sodium Chloride (Nacl 0.9% 1000 Ml Iv Soln) 1,000 mls @ 100 mls/hr IV CONTINUOUS PRN PRN Reason: THIS MED IS NOT "PRN" Stop: 10/23/17 15:39 Last Admin: 09/27/17 05:15 Dose: 1,000 ml Meropenem 1 gm/ Sodium (Chloride) 50 mls @ 100 mls/hr IV Q8A [facility] Stop: 10/01/17 09:59 Last Admin: 09/27/17 17:58 Dose: 1 gm Vancomycin HCl 1,500 mg/ (Dextrose) 250 mls @ 166.667 mls/hr IV Q6 [facility] Stop: 10/04/17 11:59 Last Admin: 09/27/17 17:58 Dose: 1,500 mg Sodium Chloride (Nacl 0.9% 250 Ml Iv Soln) 250 mls @ 0 mls/hr IV CONTINUOUS PRN ; As Directed PRN Reason: AFTER EACH UNIT Stop: 09/28/17 07:36 Last Admin: 09/27/17 15:35 Dose: 250 ml Metronidazole (Flagyl Rtu 500 Mg/Ns 100ml Premix) 100 mls @ 100 mls/hr IV Q8 [facility] Stop: 10/04/17 13:59 Last Admin: 09/27/17 13:40 Dose: 100 ml Voriconazole 450 mg/ Sodium (Chloride) 100 mls @ 100 mls/hr IV Q12@08 [facility] Stop: 09/28/17 08:59 Voriconazole 300 mg/ Sodium (Chloride) 100 mls @ 100 mls/hr IV Q12@ [facility] Stop: 10/05/17 19:59 Lactobacillus Acidophilus (Bacid 250 Mg Tablet) 250 mg PO BID [facility] Stop: 10/25/17 17:59 Last Admin: 09/27/17 17:57 Dose: 250 mg Lactulose (Cephulac Syrup 20 Gm/30 Ml Udcup) 20 gm PO BID [facility] Stop: 10/27/17 09:59 Last Admin: 09/27/17 18:00 Dose: Not Given Metoprolol Succinate (Toprol Xl 50 Mg Tab.Sr) 50 mg PO Q12 [facility] Stop: 10/27/17 21:59 Metoprolol Tartrate (Lopressor Inj/Pf 5 Mg/5 Ml Sdv) 2.5 mg IV Q1HP PRN PRN Reason: HR>130 BP Stop: 10/24/17 10:19 Last Admin: 09/27/17 17:58 Dose: 2.5 mg Morphine Sulfate (Morphine 10 Mg/Ml Inj) 3 mg IV Q2HP PRN PRN Reason: FOR BREAKTHROUGH PAIN Stop: 10/04/17 07:53 Last Admin: 09/27/17 18:29 Dose: 3 mg Ondansetron HCl (Zofran Inj/Pf 4 Mg/2 Ml Sdv) 4 mg IV Q6HP PRN PRN Reason: FOR NAUSEA/VOMITING Stop: 10/23/17 15:39 Last Admin: 09/27/17 01:56 Dose: 4 mg Oxycodone HCl (Oxy-Ir 5 Mg Tablet) 10 mg PO Q4HP PRN PRN Reason: FOR PAIN SCALE 3-5 Stop: 10/04/17 07:53 Last Admin: 09/27/17 15:15 Dose: 10 mg Oxycodone HCl (Oxycontin Sr 10 Mg Tablet) 20 mg PO Q12 [facility] Stop: 10/04/17 21:59 Zolpidem Tartrate (Ambien 5 Mg Tablet) 5 mg PO HSP PRN PRN Reason: SLEEP OR INSOMNIA Stop: 09/30/17 15:39 - Allergies Allergies/Adverse Reactions: naproxen [From Aleve] Allergy (Intermediate, Verified 09/23/17 12:29) [facility] Hospital Course Hospital Course: 37-year-old female with AML undergoing chemotherapy at [facility]. She presented to the hospital with chest pain and leukopenia. PA of the chest was negative for pulmonary embolism. Troponin went up as high as 3 and it was initially thought that she had a non- STEMI. The next day the patient developed high-grade fevers and was found to have pneumonia. Elevated troponins were secondary to sepsis from pneumonia. The patient had chest pain again today and EKG showed possible mild ST changes in the anterolateral leads. Chest X ray done today shows bibasilar infiltrates and a small right-sided pleural effusion. Troponin is 0.27 which is trending down. She was evaluated by Dr. Beltran from the oncology service. He recommended Voriconazole to cover for possible fungal infection. 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 Hemoglobin is low. This is secondary to heavy bleeding from her periods. She was ordered 2 units of packed red blood cells- received one unit, second unit to be given now. Chest pain is felt to be most likely pleuritic in nature secondary to pneumonia. Oncology Consult: JENNIFER AGUILAR is a 37 year old female with known history of AML, she was originally diagnosed about 2 years ago, at that time she had bone marrow biopsy and thereafter she had induction chemotherapy, and she was placed on consolidation chemotherapy thereafter. Unfortunately, she was never able to be brought into remission, and the last 2 months her counts worsened, and she was placed on the new chemotherapeutic oral agent Venetoclax, she was admitted on 5/ 12/2017. She was found to be hypotensive tachycardic, febrile and there was concern of sepsis, she had blood cultures drawn, she was placed on broad- spectrum antibiotics initially with Zosyn and vancomycin and then transition to meropenem and vancomycin. She was planned for transfer to [facility] hematology service but unfortunately there is not been a bed available, I did call the transfer center this morning and there is still no beds. But she has been persistently febrile for 4 days, fever was 102 as early as 12 hours ago. This morning she is having some chest pain, hemoglobin is fallen down to 6.5. 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 Of note I had a long discussion with her treating oncologist at [facility], Dr. Earl Tinajero, unfortunately this patient has never been in remission, until she gets into a remission she is not a transplant candidate, so he noted this chemotherapy with venetoclax was palliative in nature, he noted the fevers could be related to persistent AML, although the patient tells me the fevers really only started 24 hours prior to admission, although the pancytopenia worsened 2 months ago she did not have fevers then. He also noted that we have not had antifungal coverage on board, so he suggested voriconazole. He also suggested treating the Gardnerella vaginalis, standard treatment for that would be metronidazole and I have added that on. I discussed with pharmacy and added both of these medications on at appropriate doses. Of note her hemoglobin is fallen to 6.5 and she is symptomatic, we have ordered leuko-reduced and irradiated blood products. Sepsis type: sepsis due to unspecified organism Qualified Code(s): A41.9 - Sepsis, unspecified organism Is this a current diagnosis for this admission?: Yes Plan: Sepsis secondary to unknown organism, may be fungal at this point, as noted above I will add on antifungal coverage with voriconazole, I have added treatment for the Gardnerella vaginalis with Flagyl. I placed a infectious disease consult as well. I discussed her case with her treating oncologist, Dr. Tinajero in [facility] for these changes. I discussed with the transfer center and there is still no open bed so we may be treating this patient for several more days. (2) Anemia Qualifiers: Anemia type: bone marrow failure Bone marrow failure anemia type: other bone marrow failure Qualified Code(s): D61.89 - Other specified aplastic anemias and other bone marrow failure syndromes Is this a current diagnosis for this admission?: Yes Plan: Secondary to AML most likely, as well as possibly drug-induced, she will need 2 units of leuko-reduced and irradiated units, this is ordered. (3) Acute myeloid leukemia Qualifiers: Leukemia Active/Remission status: without remission Qualified Code(s): C92.00 - Acute myeloblastic leukemia, not having achieved remission Is this a current diagnosis for this admission?: Yes Plan: Never in remission unfortunately, current treatment is palliative in nature. However, patient still wants to be aggressive with treatment, at present, however, I will hold the venetoclax Physical Exam Vital Signs: Temp Pulse Resp BP Pulse Ox 102.9 F H 146 H 32 H 117/65 95 09/27/17 16:53 09/27/17 16:53 09/27/17 16:53 09/27/17 16:53 09/27/17 16:53 Intake & Output 09/26/17 09/27/17 09/28/17 06:59 06:59 06:59 Intake Total 3777 2927 318 Output Total 250 Balance 3777 4637 318 Weight 74.7 kg 75 kg General appearance: PRESENT: no acute distress Head exam: PRESENT: normocephalic Eye exam: PRESENT: PERRLA Ear exam: PRESENT: normal external ear exam Mouth exam: PRESENT: moist Respiratory exam: PRESENT: rhonchi, symmetrical. ABSENT: wheezes Cardiovascular exam: PRESENT: RRR GI/Abdominal exam: PRESENT: normal bowel sounds, soft. ABSENT: tenderness Rectal exam: PRESENT: deferred Results Laboratory Results: 09/27/17 04:00 09/27/17 04:00 09/27/17 09/27/17 09/27/17 04:00 04:00 05:05 WBC 0.4 L* RBC 2.23 L Hgb 6.5 L Hct 18.6 L MCV 83 MCH 29.0 MCHC 34.9 RDW 14.2 H Plt Count 110 L Seg Neutrophils % 84.0 H Lymphocytes % 8.5 L Monocytes % 6.0 Eosinophils % 0.8 Basophils % 0.7 Absolute Neutrophils 0.3 L Absolute Lymphocytes 0.0 L Absolute Monocytes 0.0 L Absolute Eosinophils 0.0 Absolute Basophils 0.0 Sodium 138.9 Potassium 3.5 L Chloride 102 Carbon Dioxide 25 Anion Gap 12 BUN 7 Creatinine 0.64 Est GFR ( Amer) > 60 Est GFR (Non-Af Amer) > 60 Glucose 127 H Calcium 7.9 L Phosphorus 3.4 Magnesium 2.2 Blood Type O POSITIVE Antibody Screen NEGATIVE 09/23/17 09/24/17 09/27/17 21:10 03:11 11:41 Creatine Kinase 47 CK-MB (CK-2) Troponin I 1.190 1.260 09/27/17 11:41 Creatine Kinase CK-MB (CK-2) 0.27 Troponin I 0.275 Impressions: Chest/Abdomen CTA 09/23/17 13:06 IMPRESSION: NORMAL CTA OF THE CHEST. NO PULMONARY EMBOLI. Chest X-Ray 09/27/17 00:00 IMPRESSION: Bibasilar opacities increased over the previous study. Small right effusion. Status: Imported from PACS Plan Time Spent: Greater than 30 Minutes
[2017-09-27] MEDS: OXYCODONE HCL SR 10 MG TABLET PO SCH (21:13)
[2017-09-27] MEDS: GUAIFENESIN 600 MG TABLET.SA PO SCH (21:14)
[2017-09-27] MEDS: METOPROLOL SUCCINATE 50 MG TAB.SR.24H PO SCH (21:14)
[2017-09-27] MEDS ORDERED: OXYCODONE HCL SR 10 MG TABLET PO SCH (22:00)
[2017-09-28] MEDS: METRONIDAZOLE 500 MG/NS RTU 100 ML IV SCH ×4 (00:59→21:21)
[2017-09-28] MEDS: MORPHINE SULFATE 10 MG/ML INJ IV PRN ×2 (01:02→07:42)
[2017-09-28] MEDS: NORMAL SALINE IV SCH ×2 (02:21→09:53)
[2017-09-28] MEDS: VORICONAZOLE IV SCH ×2 (02:21→09:53)
[2017-09-28] MEDS: OXYCODONE HCL IR 5 MG TABLET PO PRN ×3 (04:13→18:19)
[2017-09-28] MEDS: MEROPENEM 1 GM in NORMAL SALINE 50 ML IV SCH ×3 (04:15→17:34)
[2017-09-28] MEDS: ONDANSETRON HCL INJ/PF 4 MG/2 ML SDV IV PRN ×3 (05:45→18:19)
[2017-09-28] MEDS: VANCOMYCIN HCL 1,500 MG in DEXTROSE 5%-WATER 250 ML IV SCH ×4 (05:48→17:33)
[2017-09-28] MEDS: ACETAMINOPHEN 325 MG TABLET PO PRN ×3 (05:49→20:07)
[2017-09-28 06:40] LABS: ABSOLUTE LYMPHOCYTES (AUTO) 0.1 10^3/uL (0.5-4.7); ABSOLUTE NEUT (AUTO) 0.3 10^3/uL (1.7-8.2); BASOPHILS % (AUTO) 1.5 % (0-2); EOSINOPHILS % (AUTO) 0.6 % (0-6); HEMATOCRIT 24.3 % (36.0-47.0); HEMOGLOBIN 8.4 g/dL (12.0-15.5); LYMPHOCYTES % (AUTO) 22.9 % (13-45); MEAN CORPUSCULAR HEMOGLOBIN 28.2 pg (27.0-33.4); MEAN CORPUSCULAR HGB CONC 34.5 g/dL (32.0-36.0); MEAN CORPUSCULAR VOLUME 82 fl (80-97); MONOCYTES % (AUTO) 7.3 % (3-13); RED BLOOD COUNT 2.97 10^6/uL (3.72-5.28); RED CELL DISTRIBUTION WIDTH 14.7 % (11.5-14.0); SEGMENTED NEUTROPHILS % (AUTO) 67.7 % (42-78); TOTAL CELLS COUNTED % (AUTO) 100 %
[2017-09-28 07:03] LABS: ANION GAP 15 (5-19); BLOOD UREA NITROGEN 9 mg/dL (7-20); CALCIUM 8.1 mg/dL (8.4-10.2); CARBON DIOXIDE 24 mmol/L (22-30); CHLORIDE 98 mmol/L (98-107); GLUCOSE 121 mg/dL (75-110); POTASSIUM 3.4 mmol/L (3.6-5.0); SODIUM 137.2 mmol/L (137-145)
[2017-09-28 07:36] LABS: VANCOMYCIN,TROUGH 9.5 ug/mL (5.0-20.0)
[2017-09-28] MEDS ORDERED: POTASSI CL 20 MEQ/D5-1/2NS 1L 1,000 ML IV PRN ×2 (07:37→11:00)
[2017-09-28 07:55] LABS: PLATELET COUNT 95 10^3/uL (150-450)
[2017-09-28 07:57] LABS: WHITE BLOOD COUNT 0.5 10^3/uL (4.0-10.5)
[2017-09-28 08:05] LABS: ANISOCYTOSIS SLIGHT; OVALOCYTES SLIGHT; POIKILOCYTOSIS SLIGHT
[2017-09-28 08:06] LABS: PLATELET COMMENT DECREASED; PLATELET LARGE PRESENT
[2017-09-28] MEDS: LACTULOSE SYRUP 20 GM/30 ML UDCUP PO SCH ×2 (09:47→17:34)
[2017-09-28] MEDS: OXYCODONE HCL SR 10 MG TABLET PO SCH ×2 (09:48→21:13)
[2017-09-28] MEDS: METOPROLOL SUCCINATE 50 MG TAB.SR.24H PO SCH ×2 (09:48→21:14)
[2017-09-28] MEDS: GUAIFENESIN 600 MG TABLET.SA PO SCH ×2 (09:48→21:13)
[2017-09-28] MEDS: LACTOBACILLUS ACIDOPHILUS 250 MG TAB PO SCH ×2 (09:49→17:33)
--- NOTE | 2017-09-28 11:28 | PDOC PROGRESS REPORT ---
Subjective Progress Note for:: 09/28/17 Subjective:: Patient received blood transfusion yesterday. Today she claims that she is not hurting in the chest. She feels overall somewhat better. White cell count shows minimal improvement. Chest x-ray reviewed. Shows bibasilar opacities and minimal right pleural effusion. Patient denying any PND, orthopnea. Patient denied any sustained palpitations, dizziness, syncope, near syncope. Patient denying any fever chills. Patient denying any other significant discomfort. Patient is maintaining sinus rhythm. Review of systems: Rest review of systems negative. Medications: Medications have been reviewed. Reason For Visit: NSTEMI,SEPSIS,PNA Physical Exam Vital Signs: Temp Pulse Resp BP Pulse Ox 102.3 F H 133 H 24 H 107/69 97 09/28/17 07:48 09/28/17 07:48 09/28/17 07:48 09/28/17 07:48 09/28/17 07:48 Intake & Output 09/27/17 09/28/17 09/29/17 06:59 06:59 06:59 Intake Total 2927 5134 Output Total 250 Balance 2677 5134 Weight 75 kg 81.2 kg Exam: GENERAL: well-nourished and in no acute distress. Alert and oriented x3 HEAD: Atraumatic, normocephalic. EYES: Pupils equal round and reactive to light, extraocular movements intact, sclera anicteric, conjunctiva are normal. ENT: TMs normal, nares patent, oropharynx clear without exudates. Moist mucous membranes. No oral ulcerations or bleeding gums noted NECK: supple without lymphadenopathy. Trachea is central. No cervical or axillary lymphadenopathy noted. Carotids are 2+, JVD WNL LUNGS: Respiration seems nonlabored, no significant accessory muscle action noted. Bibasilar fine crackles are noted. No wheezes rales or rhonchi noted. No significant dullness noted on percussion. CHEST: Palpation of the chest wall shows no significant chest wall tenderness. HEART: [employer], No PSH, 1/6 GOPAL aortic area, 1/6 manning systolic murmur mitral area, no rubs, no gallops. ABDOMEN: Soft, no significant tenderness appreciated, normoactive bowel sounds. No guarding, no rebound. No rigidity noted . No masses appreciated. EXTREMITIES: Pedal pulses are 1-2+, no calf tenderness noted. No clubbing or cyanosis. negative pedal edema noted NEUROLOGICAL: Focused neurological exam showed no significant neurologic deficit. Normal speech, no focal weakness appreciated. PSYCH: Normal mood, normal affect. Judgment and insight within normal limits. SKIN: No significant ecchymosis, skin is noted to be warm. MUSCULOSKELETAL EXAM: No significant acute joint swelling noted. Results Laboratory Results: 09/28/17 05:55 09/28/17 05:55 09/27/17 09/28/17 09/28/17 05:05 05:55 05:55 WBC 0.5 L* RBC 2.97 L Hgb 8.4 L Hct 24.3 L MCV 82 MCH 28.2 MCHC 34.5 RDW 14.7 H Plt Count 95 L Seg Neutrophils % 67.7 Lymphocytes % 22.9 Monocytes % 7.3 Eosinophils % 0.6 Basophils % 1.5 Absolute Neutrophils 0.3 L Absolute Lymphocytes 0.1 L Absolute Monocytes 0.0 L Absolute Eosinophils 0.0 Absolute Basophils 0.0 Potassium Chloride BUN Creatinine Cancelled Est GFR ( Amer) Cancelled Est GFR (Non-Af Amer) Cancelled Glucose Calcium Blood Type O POSITIVE Antibody Screen NEGATIVE 09/28/17 05:55 WBC RBC Hgb Hct MCV MCH MCHC RDW Plt Count Seg Neutrophils % Lymphocytes % Monocytes % Eosinophils % Basophils % Absolute Neutrophils Absolute Lymphocytes Absolute Monocytes Absolute Eosinophils Absolute Basophils Potassium 3.4 L Chloride 98 BUN 9 Creatinine 0.63 Est GFR ( Amer) > 60 Est GFR (Non-Af Amer) > 60 Glucose 121 H Calcium 8.1 L Blood Type Antibody Screen 09/23/17 09/24/17 09/27/17 21:10 03:11 11:41 Creatine Kinase 47 CK-MB (CK-2) Troponin I 1.190 1.260 09/27/17 11:41 Creatine Kinase CK-MB (CK-2) 0.27 Troponin I 0.275 EKG Comments: Telemetry shows sinus tachycardia. Improved since yesterday. Impressions: Chest/Abdomen CTA 09/23/17 13:06 IMPRESSION: NORMAL CTA OF THE CHEST. NO PULMONARY EMBOLI. Chest X-Ray 09/27/17 00:00 IMPRESSION: Bibasilar opacities increased over the previous study. Small right effusion. Assessment & Plan - Diagnosis (1) Elevated troponin I level Is this a current diagnosis for this admission?: Yes (2) NSTEMI (non-ST elevated myocardial infarction) Is this a current diagnosis for this admission?: Yes (3) Neutropenia Qualifiers: Neutropenia type: secondary to cancer chemotherapy Qualified Code(s): D70.1 - Agranulocytosis secondary to cancer chemotherapy; T45.1X5A - Adverse effect of antineoplastic and immunosuppressive drugs, initial encounter; T45.1X5A - Adverse effect of antineoplastic and immunosuppressive drugs, initial encounter Is this a current diagnosis for this admission?: Yes (4) Sepsis Qualifiers: Sepsis type: sepsis due to unspecified organism Qualified Code(s): A41.9 - Sepsis, unspecified organism Is this a current diagnosis for this admission?: Yes (5) Anemia Qualifiers: Anemia type: bone marrow failure Bone marrow failure anemia type: other bone marrow failure Qualified Code(s): D61.89 - Other specified aplastic anemias and other bone marrow failure syndromes Is this a current diagnosis for this admission?: Yes (6) Acute myeloid leukemia Qualifiers: Leukemia Active/Remission status: without remission Qualified Code(s): C92.00 - Acute myeloblastic leukemia, not having achieved remission Is this a current diagnosis for this admission?: Yes - Notes Notes: Elevated troponin I level: Most likely related to supply demand mismatch. Possibly also could be from sepsis. Doubt acute coronary syndrome. Chest pains have been mostly pleuritic and atypical. Cannot rule out pericarditis. Previous 2D echocardiogram showed no pericardial effusion. Non-STEMI: Patient has chest pain, atypical, positive troponin I. Possibly related to acute myeloid leukemia, sepsis etc. causing supply demand mismatch, micro emboli etc. Neutropenia: Patient to undergo neutropenia prophylaxis. Sepsis: Patient may have underlying sepsis. Continue antibiotic therapy. Anemia: Currently stable. Transfuse as needed. Patient scheduled to get 2 units of blood transfusion. Rule out occult bleeding. Patient did receive 2 units of blood transfusion yesterday. Hemoglobin now above 8 g percent. Acute myeloid leukemia: Patient currently very neutropenic and is status post chemotherapy. Feel that patient will benefit from transfer to tertiary care for this reason. Tachycardia: This is mostly related to metabolic problem, anemia, sepsis etc. Patient however placed on beta-bailey since tachycardia was felt to be somewhat also inappropriate. Metoprolol succinate dose is being increased. Patient on additional as needed IV Lopressor. Metoprolol succinate dose was increased to 50 mg p.o. twice daily. Patient to report any further problems. Will repeat an EKG tomorrow to look for any evolving changes. Possibility of pericarditis cannot be entirely ruled out. - Time Time with patient: Greater than 35 minutes - More than 50% of the time spent coordinating care, discussing management plans with involved caregivers. Management plans discussed with involved personnels. Medical decision making was of moderate to high complexity, patient's has multiple comorbidities. Medications reviewed and adjusted accordingly: Yes
[2017-09-28] MEDS ORDERED: POTASSIUM CHLORIDE 10 MEQ TABLET.SA PO ONE (11:30)
--- NOTE | 2017-09-28 11:35 | PDOC PROGRESS REPORT ---
Subjective Progress Note for:: 09/28/17 Subjective:: No acute events overnight, still febrile this morning but she feels overall better. She did receive blood yesterday. Reason For Visit: NSTEMI,SEPSIS,PNA Physical Exam Vital Signs: Temp Pulse Resp BP Pulse Ox 102.3 F H 133 H 24 H 107/69 97 09/28/17 07:48 09/28/17 07:48 09/28/17 07:48 09/28/17 07:48 09/28/17 07:48 Intake & Output 09/27/17 09/28/17 09/29/17 06:59 06:59 06:59 Intake Total 2927 5134 Output Total 250 Balance 2677 5134 Weight 75 kg 81.2 kg General appearance: PRESENT: no acute distress, well-developed, well-nourished Head exam: PRESENT: atraumatic, normocephalic Eye exam: PRESENT: conjunctiva pink, EOMI, PERRLA. ABSENT: scleral icterus Ear exam: PRESENT: normal external ear exam Mouth exam: PRESENT: moist, tongue midline Neck exam: ABSENT: carotid bruit, JVD, lymphadenopathy, thyromegaly Respiratory exam: PRESENT: clear to auscultation sunil. ABSENT: rales, rhonchi, wheezes Cardiovascular exam: PRESENT: RRR. ABSENT: diastolic murmur, rubs, systolic murmur Pulses: PRESENT: normal dorsalis pedis pul Vascular exam: PRESENT: normal capillary refill GI/Abdominal exam: PRESENT: normal bowel sounds, soft. ABSENT: distended, guarding, mass, organolmegaly, rebound, tenderness Rectal exam: PRESENT: deferred Extremities exam: PRESENT: full ROM. ABSENT: calf tenderness, clubbing, pedal edema Neurological exam: PRESENT: alert, awake, oriented to person, oriented to place , oriented to time, oriented to situation, CN II-XII grossly intact. ABSENT: motor sensory deficit Psychiatric exam: PRESENT: appropriate affect, normal mood. ABSENT: homicidal ideation, suicidal ideation Skin exam: PRESENT: dry, intact, warm. ABSENT: cyanosis, rash Results Laboratory Results: 09/28/17 05:55 09/28/17 05:55 09/27/17 09/28/17 09/28/17 05:05 05:55 05:55 WBC 0.5 L* RBC 2.97 L Hgb 8.4 L Hct 24.3 L MCV 82 MCH 28.2 MCHC 34.5 RDW 14.7 H Plt Count 95 L Seg Neutrophils % 67.7 Lymphocytes % 22.9 Monocytes % 7.3 Eosinophils % 0.6 Basophils % 1.5 Absolute Neutrophils 0.3 L Absolute Lymphocytes 0.1 L Absolute Monocytes 0.0 L Absolute Eosinophils 0.0 Absolute Basophils 0.0 Potassium Chloride BUN Creatinine Cancelled Est GFR ( Amer) Cancelled Est GFR (Non-Af Amer) Cancelled Glucose Calcium Blood Type O POSITIVE Antibody Screen NEGATIVE 09/28/17 05:55 WBC RBC Hgb Hct MCV MCH MCHC RDW Plt Count Seg Neutrophils % Lymphocytes % Monocytes % Eosinophils % Basophils % Absolute Neutrophils Absolute Lymphocytes Absolute Monocytes Absolute Eosinophils Absolute Basophils Potassium 3.4 L Chloride 98 BUN 9 Creatinine 0.63 Est GFR ( Amer) > 60 Est GFR (Non-Af Amer) > 60 Glucose 121 H Calcium 8.1 L Blood Type Antibody Screen 09/23/17 09/24/17 09/27/17 21:10 03:11 11:41 Creatine Kinase 47 CK-MB (CK-2) Troponin I 1.190 1.260 09/27/17 11:41 Creatine Kinase CK-MB (CK-2) 0.27 Troponin I 0.275 Impressions: Chest/Abdomen CTA 09/23/17 13:06 IMPRESSION: NORMAL CTA OF THE CHEST. NO PULMONARY EMBOLI. Chest X-Ray 09/27/17 00:00 IMPRESSION: Bibasilar opacities increased over the previous study. Small right effusion. Assessment & Plan - Diagnosis (1) Sepsis Qualifiers: Sepsis type: sepsis due to unspecified organism Qualified Code(s): A41.9 - Sepsis, unspecified organism Is this a current diagnosis for this admission?: Yes Plan: Continued, she is on broad-spectrum antibiotics along with antifungal with voriconazole, also treatment for Gardnerella with metronidazole. Continue with all these antibiotics. (2) Anemia Qualifiers: Anemia type: bone marrow failure Bone marrow failure anemia type: other bone marrow failure Qualified Code(s): D61.89 - Other specified aplastic anemias and other bone marrow failure syndromes Is this a current diagnosis for this admission?: Yes Plan: Hemoglobin stable post transfusion, will follow. (3) Acute myeloid leukemia Qualifiers: Leukemia Active/Remission status: without remission Qualified Code(s): C92.00 - Acute myeloblastic leukemia, not having achieved remission Is this a current diagnosis for this admission?: Yes Plan: As noted previously this is not in remission, this may be contributing to her presentation currently. We held her oral chemotherapeutic, and this will continue to hold while inpatient. - Time Time Spent with patient: 35 or more minutes - Inpatient Certification Based on my medical assessment, after consideration of the patient's comorbidities, presenting symptoms, or acuity I expect that the services needed warrant INPATIENT care.: Yes I certify that my determination is in accordance with my understanding of Medicare's requirements for reasonable and necessary INPATIENT services [42 CFR 412.3e].: Yes Medical Necessity: Need For Continuous Telemetry Monitoring, Need for IV Antibiotics
[2017-09-28] MEDS: HYDROMORPHONE HCL INJ/PF 2 MG/ML AMPULE IV PRN ×3 (11:43→19:24)
--- NOTE | 2017-09-28 12:15 | PDOC PROGRESS REPORT ---
Subjective Progress Note for:: 09/28/17 Subjective:: 37-year-old female with AML undergoing chemotherapy at [facility]. She presented to the hospital with chest pain and leukopenia. PA of the chest was negative for pulmonary embolism. Troponin went up as high as 3 and it was initially thought that she had a non- STEMI. The next day the patient developed high-grade fevers and was found to have pneumonia. Elevated troponins were secondary to sepsis from pneumonia. She was given one dose of Filgrastim 3 days ago The patient has chest pain and EKG showed possible mild ST changes in the anterolateral leads. Chest X ray done today shows bibasilar infiltrates and a small right-sided pleural effusion. Troponin is 0.27 which is trending down. She was evaluated by Dr. Beltran from the oncology service. He recommended Voriconazole to cover for possible fungal infection. 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 She received 2 units of packed red blood cells on 09/27/17 Chest pain is felt to be most likely pleuritic in nature secondary to pneumonia. Feels somewhat better today. Pain better controlled. Appetite remains poor. Reason For Visit: NSTEMI,SEPSIS,PNA Physical Exam Vital Signs: Temp Pulse Resp BP Pulse Ox 102.3 F H 133 H 24 H 107/69 97 09/28/17 07:48 09/28/17 07:48 09/28/17 07:48 09/28/17 07:48 09/28/17 07:48 Intake & Output 09/27/17 09/28/17 09/29/17 06:59 06:59 06:59 Intake Total 2927 5134 Output Total 250 Balance 2677 5134 Weight 75 kg 81.2 kg General appearance: PRESENT: no acute distress Head exam: PRESENT: normocephalic Eye exam: ABSENT: scleral icterus Ear exam: PRESENT: normal external ear exam Mouth exam: PRESENT: moist Neck exam: ABSENT: tracheal deviation Respiratory exam: PRESENT: rhonchi, symmetrical, unlabored Cardiovascular exam: PRESENT: RRR GI/Abdominal exam: PRESENT: normal bowel sounds, soft Rectal exam: PRESENT: deferred Extremities exam: ABSENT: calf tenderness Neurological exam: PRESENT: alert, awake, oriented to person, oriented to place , oriented to time, oriented to situation Psychiatric exam: PRESENT: appropriate affect Skin exam: ABSENT: rash Results Laboratory Results: 09/28/17 05:55 09/28/17 05:55 09/27/17 09/28/17 09/28/17 05:05 05:55 05:55 WBC 0.5 L* RBC 2.97 L Hgb 8.4 L Hct 24.3 L MCV 82 MCH 28.2 MCHC 34.5 RDW 14.7 H Plt Count 95 L Seg Neutrophils % 67.7 Lymphocytes % 22.9 Monocytes % 7.3 Eosinophils % 0.6 Basophils % 1.5 Absolute Neutrophils 0.3 L Absolute Lymphocytes 0.1 L Absolute Monocytes 0.0 L Absolute Eosinophils 0.0 Absolute Basophils 0.0 Potassium Chloride BUN Creatinine Cancelled Est GFR ( Amer) Cancelled Est GFR (Non-Af Amer) Cancelled Glucose Calcium Blood Type O POSITIVE Antibody Screen NEGATIVE 09/28/17 05:55 WBC RBC Hgb Hct MCV MCH MCHC RDW Plt Count Seg Neutrophils % Lymphocytes % Monocytes % Eosinophils % Basophils % Absolute Neutrophils Absolute Lymphocytes Absolute Monocytes Absolute Eosinophils Absolute Basophils Potassium 3.4 L Chloride 98 BUN 9 Creatinine 0.63 Est GFR ( Amer) > 60 Est GFR (Non-Af Amer) > 60 Glucose 121 H Calcium 8.1 L Blood Type Antibody Screen 09/23/17 09/24/17 09/27/17 21:10 03:11 11:41 Creatine Kinase 47 CK-MB (CK-2) Troponin I 1.190 1.260 09/27/17 11:41 Creatine Kinase CK-MB (CK-2) 0.27 Troponin I 0.275 Impressions: Chest/Abdomen CTA 09/23/17 13:06 IMPRESSION: NORMAL CTA OF THE CHEST. NO PULMONARY EMBOLI. Chest X-Ray 09/27/17 00:00 IMPRESSION: Bibasilar opacities increased over the previous study. Small right effusion. Assessment & Plan - Diagnosis (1) Sepsis Qualifiers: Sepsis type: sepsis due to unspecified organism Qualified Code(s): A41.9 - Sepsis, unspecified organism Is this a current diagnosis for this admission?: Yes Plan: Due to pneumonia. Continue antibiotics- Meropenem, Vancomycin, Voriconazole and Flagyl. ID consult requested. Blood cultures have been negative since admission. (2) Elevated troponin I level Is this a current diagnosis for this admission?: Yes Plan: Secondary to sepsis. (3) Neutropenia Qualifiers: Neutropenia type: secondary to cancer chemotherapy Qualified Code(s): D70.1 - Agranulocytosis secondary to cancer chemotherapy; T45.1X5A - Adverse effect of antineoplastic and immunosuppressive drugs, initial encounter; T45.1X5A - Adverse effect of antineoplastic and immunosuppressive drugs, initial encounter Is this a current diagnosis for this admission?: Yes Plan: Continue to monitor. Neutropenic precautions (4) PNA (pneumonia) Qualifiers: Pneumonia type: due to unspecified organism Laterality: right Lung location: lower lobe of lung Qualified Code(s): J18.1 - Lobar pneumonia, unspecified organism Is this a current diagnosis for this admission?: Yes Plan: Day 5 of Vancomycin and Meropenem. Day 2 of Voriconazole and Flagyl (5) Acute myeloid leukemia Qualifiers: Leukemia Active/Remission status: without remission Qualified Code(s): C92.00 - Acute myeloblastic leukemia, not having achieved remission Is this a current diagnosis for this admission?: Yes Plan: Awaiting transfer to [facility] once bed is available. Oncology input appreciated (6) Anemia Is this a current diagnosis for this admission?: Yes Plan: Due to AML and acute blood loss. S/p 2 units PRBC, continue to monitor - Time Time Spent with patient: 35 or more minutes
[2017-09-28] MEDS: METOPROLOL TARTRATE PF/INJ 5 MG/5 ML SDV IV PRN (17:33)
[2017-09-28] MEDS ORDERED: NORMAL SALINE IV SCH (20:00)
[2017-09-28] MEDS ORDERED: VORICONAZOLE IV SCH (20:00)
[2017-09-28 20:04] VITALS: BP 109/84
== END 2017-09-28 21:49 | disposition short-term general hospital (02) | DRG 871 ==
LOC: ER 11:32 → EH 15:53 → OBSVTOIN 16:36 → 5 18:00 → 3W 20:35
PROVIDERS: ADMIT Family Medicine; ATTEND Family Medicine
PROC: 30233N1 Transfusion of Nonautologous Red Blood Cells into Peripheral Vein, Percutaneous Approach (ICD-10-PCS; principal; 2017-09-27)
DX: A41.9 Sepsis, unspecified organism (principal); J18.9 Pneumonia, unspecified organism; C92.00 Acute myeloblastic leukemia, not having achieved remission; R74.8 Abnormal levels of other serum enzymes; D70.1 Agranulocytosis secondary to cancer chemotherapy; T45.1X5A Adverse effect of antineoplastic and immunosuppressive drugs, initial encounter; E87.6 Hypokalemia; N92.0 Excessive and frequent menstruation with regular cycle; D63.0 Anemia in neoplastic disease; B96.89 Other specified bacterial agents as the cause of diseases classified elsewhere; Z80.6 Family history of leukemia; Z92.25 Personal history of immunosuppression therapy; Z82.3 Family history of stroke; Z80.9 Family history of malignant neoplasm, unspecified; Z82.49 Family history of ischemic heart disease and other diseases of the circulatory system; Z88.8 Allergy status to other drugs, medicaments and biological substances; Z75.1 Person awaiting admission to adequate facility elsewhere
CPT/HCPCS: 36415; 36430; 71046; 71275; 80048; 80053; 80061; 80202; 81001; 82550; 82553; 83036; 83605; 83735; 84100; 84439; 84443; 84481; 84484; 85025; 85027; 85379; 85610; 86850; 86900; 86901; 86920; 87040; 87086; 87088; 93005; 93010; 93306; 93971; 96374; 96375; 96376; 99291; J1170; J1442; J1956; J2185; J2270; J2405; J3370; J3465; J3475; J3480; J3490; J7030; J7050; J7060; P9016

== ENCOUNTER 2017-10-23 10:13 | Outpatient (CLI) | payer MEDICAID ==
[~2017-10-23 10:13] MED LIST: ACETAMINOPHEN 325 MG TABLET PO PRN; DIPHENHYDRAMINE HCL 25 MG CAPSULE PO PRN; FUROSEMIDE INJ/PF 20 MG/2 ML SDV IV PRN
[2017-10-23] MEDS ORDERED: NORMAL SALINE 250 ML IV PRN (11:12)
[2017-10-23 11:48] LABS: HEMATOCRIT 22.2 % (36.0-47.0); MEAN CORPUSCULAR HEMOGLOBIN 28.9 pg (27.0-33.4); MEAN CORPUSCULAR VOLUME 83 fl (80-97); RED CELL DISTRIBUTION WIDTH 13.8 % (11.5-14.0)
[2017-10-23 12:07] LABS: HEMOGLOBIN 7.8 g/dL (12.0-15.5); WHITE BLOOD COUNT 0.6 10^3/uL (4.0-10.5)
[2017-10-23 12:36] LABS: PLATELET COUNT 50 10^3/uL (150-450)
[2017-10-23 16:33] VITALS: BP 122/82
== END 2017-10-23 16:33 | disposition home or self-care (01) ==
LOC: II 10:13 → 5TH 10:16 → II 16:33
PROVIDERS: ATTEND Internal Medicine Medical Oncology
PROC: 30243N1 Transfusion of Nonautologous Red Blood Cells into Central Vein, Percutaneous Approach (ICD-10-PCS; principal; 2017-10-23)
PROC: 3E043GC Introduction of Other Therapeutic Substance into Central Vein, Percutaneous Approach (ICD-10-PCS; 2017-10-23)
DX: C92.00 Acute myeloblastic leukemia, not having achieved remission (principal)
CPT/HCPCS: 86900; 86901; 36415; 36430; 86850; 86920; P9016; J3490 ×2; J1940; 96374

== ENCOUNTER 2018-01-13 13:00 | Observation (INO) | payer MEDICAID ==
[2018-01-13] MEDS ORDERED: VANCOMYCIN HCL INJ 1000 MG VIAL IV ONE (13:17)
[2018-01-13] MEDS ORDERED: PIPERACILLIN/TAZOBACTAM 3.375 GM VIAL IV ONE (13:17)
--- NOTE | 2018-01-13 13:19 | ER Document Report ---
ED Medical Screen (RME) - General Chief Complaint: Shortness Of Breath Stated Complaint: SHORTNESS OF BREATH Time Seen by Provider: 01/13/18 13:12 Notes: RAPID MEDICAL EVALUATION DISCLOSURE I have seen this patient as part of a Rapid Medical Evaluation and, if applicable, placed any initially appropriate orders. The patient will be seen and fully evaluated, including a full history and physical exam, by a provider ( in Main ED or Fast Track) when a room becomes available. 37-year-old female PMH AML on oral chemotherapy twice daily here with complaints of fever, shortness of breath, nausea, vomiting, and "whole body numbness and tingling" ongoing for the past 3 days. She has never had this before. She does not have any sick contacts. She has not tried any medication for the symptoms, primarily because she is unable to keep anything down. She does see Dr. Marroquin for her cancer care however she has not been able to keep her oral chemotherapy medication down due to the vomiting. She denies any chest pain dysuria frequency hesitancy diarrhea but does have some upper abdominal pain. She denies any previous neutropenic fever. EXAM Alert and conversational CTAB Mild tachypnea Moderately tachycardic Minimal upper quadrant TTP TRAVEL OUTSIDE OF THE [place] IN LAST 30 DAYS: No - Related Data Allergies/Adverse Reactions: naproxen [From Aleve] Allergy (Intermediate, Verified 01/13/18 13:06) Hives Past Medical History - Social History Chew tobacco use (# tins/day): No Frequency of alcohol use: None Drug Abuse: None Pulmonary Medical History: Reports: Hx Pneumonia Renal/ Medical History: Denies: Hx Peritoneal Dialysis Malignancy Medical History: Reports: Hx Leukemia - AML Musculoskeltal Medical History: Reports Hx Musculoskeletal Deformity - Low back pain chronic Past Surgical History: Reports: Hx Section - x2, Hx Herniorrhaphy, Hx Tubal Ligation, Other - Ventral hernia and a right-sided Port-A-Cath - Immunizations Hx Diphtheria, Pertussis, Tetanus Vaccination: No History of Influenza Vaccine for 02/2017 - 07/2017 Season: Yes Influenza Administration Date for 02/2017 - 07/2017 Season: 02/16/17 Physical Exam - Vital signs Vitals: Temp Pulse Resp BP Pulse Ox 101.2 F H 172 H 20 116/55 L 100 01/13/18 13:03 01/13/18 13:03 01/13/18 13:03 01/13/18 13:03 01/13/18 13:03 Course - Vital Signs Vital signs: Temp Pulse Resp BP Pulse Ox 101.2 F H 172 H 20 116/55 L 100 01/13/18 13:03 01/13/18 13:03 01/13/18 13:03 01/13/18 13:03 01/13/18 13:03 Doctor's Discharge - Discharge Referrals: TIM MARROQUIN MD [Primary Care Provider] - Follow up as needed
[2018-01-13] MEDS ORDERED: METOCLOPRAMIDE HCL INJ/PF 10 MG/2 ML SDV IV ONE (13:28)
[2018-01-13] MEDS: NORMAL SALINE 1000 ML 1,000 ML IV PRN ×2 (14:45→15:53)
--- NOTE | 2018-01-13 14:55 | ER Document Report ---
ED General - General Chief Complaint: Shortness Of Breath Stated Complaint: SHORTNESS OF BREATH Time Seen by Provider: 01/13/18 13:12 Notes: 37-year-old female to emergency department complaining of tachycardia and fever. Patient followed by Dr. Adalberto addison has a history of acute myelogenous leukemia. Has exhausted all treatment protocols for her disease. Was recently told she needed to be on hospice. Presents here today with tachycardia, fever and generally not feeling well. Pain all over. TRAVEL OUTSIDE OF THE [place] IN LAST 30 DAYS: No - HPI Onset/Duration: Gradual, Worse Quality of pain: Achy Severity: Moderate Pain Level: 3 Associated symptoms: Fever - Related Data Allergies/Adverse Reactions: naproxen [From Aleve] Allergy (Intermediate, Verified 01/13/18 13:06) Hives Past Medical History - General Information source: Patient - Social History Smoking Status: Former Smoker Chew tobacco use (# tins/day): No Frequency of alcohol use: None Drug Abuse: None Lives with: Family Family History: COPD, CVA, Hypertension, Malignancy Patient has suicidal ideation: No Patient has homicidal ideation: No Pulmonary Medical History: Reports: Hx Pneumonia Renal/ Medical History: Denies: Hx Peritoneal Dialysis Malignancy Medical History: Reports: Hx Leukemia - AML Musculoskeletal Medical History: Reports Hx Musculoskeletal Deformity - Low back pain chronic Past Surgical History: Reports: Hx Section - x2, Hx Herniorrhaphy, Hx Tubal Ligation, Other - Ventral hernia and a right-sided Port-A-Cath - Immunizations Hx Diphtheria, Pertussis, Tetanus Vaccination: No Review of Systems - Review of Systems Constitutional: Fever, Malaise, Weakness EENT: denies: Double vision, Difficulty swallowing, Throat swelling, Mouth swelling Cardiovascular: Palpitations, Heart racing, Dizziness, Lightheaded. denies: Chest pain, Syncope Respiratory: denies: Cough, Hurts to breathe, Short of breath, Wheezing Gastrointestinal: denies: Abdominal pain, Diarrhea, Nausea, Vomiting Genitourinary: denies: Burning, Dysuria, Discharge Musculoskeletal: Back pain, Joint pain, Muscle pain Skin: denies: Dryness, Lesions, Lumps, Rash Hematologic/Lymphatic: Anemia, Other - Acute myelogenous leukemia. denies: Blood clots, Easy bleeding Neurological/Psychological: denies: Confusion, Weakness, Numbness Physical Exam - Vital signs Vitals: Temp Pulse Resp BP Pulse Ox 101.2 F H 172 H 20 116/55 L 100 01/13/18 13:03 01/13/18 13:03 01/13/18 13:03 01/13/18 13:03 01/13/18 13:03 Interpretation: Tachycardic - General General appearance: Appears well, Alert - HEENT Head: Normocephalic, Atraumatic Eyes: Normal Pupils: PERRL - Respiratory Respiratory status: No respiratory distress Chest status: Nontender Breath sounds: Normal Chest palpation: Normal - Cardiovascular Rhythm: Tachycardia - Abdominal Inspection: Normal Distension: No distension Bowel sounds: Normal Tenderness: Nontender Organomegaly: No organomegaly - Back Back: Normal, Nontender - Extremities General upper extremity: Normal inspection, Nontender, Normal color, Normal ROM , Normal temperature General lower extremity: Normal inspection, Nontender, Normal color, Normal ROM , Normal temperature, Normal weight bearing. No: Alexa's sign - Neurological Neuro grossly intact: Yes Cognition: Normal Orientation: AAOx4 Makinen Coma Scale Eye Opening: Spontaneous Makinen Coma Scale Verbal: Oriented Alesha Coma Scale Motor: Obeys Commands Makinen Coma Scale Total: 15 Speech: Normal Motor strength normal: LUE, RUE, LLE, RLE Sensory: Normal - Psychological Associated symptoms: Normal affect, Normal mood Course - Re-evaluation Re-evalutation: 01/13/18 18:43 Patient with a white blood cell count which is almost incompatible with life. Did discuss the case with patient's oncologist. There are no other treatment options at this time and patient is not a candidate for any other interventions. I have a long and lengthy discussion with the patient. At this time we are going to transfuse her for her critical anemia. Fluid hydration. Pain medication and comfort measures. Patient is still not decided whether she wants to be resuscitated if or when her heart stops. Consult with the hospitalist for admission at this time. - Vital Signs Vital signs: Temp Pulse Resp BP Pulse Ox 98.8 F 124 H 17 116/78 95 01/13/18 18:31 01/13/18 18:31 01/13/18 18:31 01/13/18 18:31 01/13/18 18:31 - Laboratory Result Diagrams: 01/13/18 14:40 01/13/18 14:40 Laboratory results interpreted by me: 01/13/18 01/13/18 01/13/18 14:40 14:40 16:33 WBC 347.5 H* RBC 2.41 L Hgb 6.4 L Hct 20.1 L MCH 26.4 L MCHC 31.8 L RDW 17.8 H Plt Count 21 L* Seg Neuts % (Manual) 0 L Lymphocytes % (Manual) 3 L Monocytes % (Manual) 0 L Immature Leukocytes % 97 H Abs Neuts (Manual) 0.0 L Abs Lymphs (Manual) 10.4 H Abs Monocytes (Manual) 0.0 L Potassium 2.4 L* Chloride 90 L Glucose 135 H Direct Bilirubin 0.7 H AST 40 H Alkaline Phosphatase 134 H Crossmatch See Detail Critical Care Note - Critical Care Note Total time excluding time spent on procedures (mins): 60 Comments: Tachycardia, hypotension, critical anemia, consultation with specialists, coordination of care. Discharge - Discharge Clinical Impression: AML (acute myeloblastic leukemia) Qualifiers: Leukemia Active/Remission status: relapsed Qualified Code(s): C92.02 - Acute myeloblastic leukemia, in relapse Sepsis Qualifiers: Sepsis type: sepsis due to unspecified organism Qualified Code(s): A41.9 - Sepsis, unspecified organism Condition: Poor Disposition: ADMITTED INPATIENT Admitting Provider: [facility] Unit Admitted: [facility]
--- NOTE | 2018-01-13 14:59 | RADIOLOGY REPORT (SQ) ---
EXAM DESCRIPTION: CHEST SINGLE VIEW COMPLETED DATE/TIME: 01/13/2018 2:51 pm REASON FOR STUDY: sob COMPARISON: None. EXAM PARAMETERS: NUMBER OF VIEWS: One view. TECHNIQUE: Single frontal radiographic view of the chest acquired. RADIATION DOSE: NA LIMITATIONS: None. FINDINGS: LUNGS AND PLEURA: No opacities, masses or pneumothorax. No pleural effusion. MEDIASTINUM AND HILAR STRUCTURES: No masses. Contour normal. HEART AND VASCULAR STRUCTURES: Heart normal in size. Normal vasculature. BONES: No acute findings. HARDWARE: None in the chest. OTHER: No other significant finding. IMPRESSION: NO ACUTE RADIOGRAPHIC FINDING IN THE CHEST. TECHNICAL DOCUMENTATION: JOB ID: [id number] [employer]- All Rights Reserved Reading location - IP/workstation name: [email or web address]
[2018-01-13 15:05] LABS: HEMATOCRIT 20.1 % (36.0-47.0); MEAN CORPUSCULAR HEMOGLOBIN 26.4 pg (27.0-33.4); MEAN CORPUSCULAR HGB CONC 31.8 g/dL (32.0-36.0); MEAN CORPUSCULAR VOLUME 83 fl (80-97); RED BLOOD COUNT 2.41 10^6/uL (3.72-5.28); RED CELL DISTRIBUTION WIDTH 17.8 % (11.5-14.0)
[2018-01-13 15:17] LABS: ALANINE AMINOTRANSFERASE 21 U/L (9-52); ALBUMIN 3.8 g/dL (3.5-5.0); ALKALINE PHOSPHATASE 134 U/L (38-126); ANION GAP 18 (5-19); ASPARTATE AMINO TRANSFERASE 40 U/L (14-36); BILIRUBIN,DIRECT 0.7 mg/dL (0.0-0.4); BILIRUBIN,TOTAL 1.2 mg/dL (0.2-1.3); BLOOD UREA NITROGEN 13 mg/dL (7-20); CALCIUM 9.1 mg/dL (8.4-10.2); CARBON DIOXIDE 30 mmol/L (22-30); CHLORIDE 90 mmol/L (98-107); GLUCOSE 135 mg/dL (75-110); LIPASE 68.8 U/L (23-300); SODIUM 137.8 mmol/L (137-145); TOTAL PROTEIN 6.6 g/dL (6.3-8.2)
[2018-01-13 15:20] LABS: POTASSIUM 2.4 mmol/L (3.6-5.0)
[2018-01-13] MEDS ORDERED: ASPIRIN 81 MG TABLET, CHEWABLE PO ONE (15:31)
[2018-01-13 15:40] LABS: HEMOGLOBIN 6.4 g/dL (12.0-15.5); WHITE BLOOD COUNT 347.5 10^3/uL (4.0-10.5)
[2018-01-13 15:41] LABS: PLATELET COUNT 21 10^3/uL (150-450)
[2018-01-13 15:50] LABS: ABSOLUTE LYMPHOCYTES# (MANUAL) 10.4 10^3/uL (0.5-4.7); ANISOCYTOSIS 1+; BASOPHILS % (MANUAL) 0 % (0-2); EOSINOPHILS % (MANUAL) 0 % (0-6); IMMATURE MONONUCLEAR% (MANUAL) 97 % (0); LYMPHOCYTES % (MANUAL) 3 % (13-45); MONOCYTES % (MANUAL) 0 % (3-13); SEGMENTED NEUTROPHILS % (MAN) 0 % (42-78); TOTAL CELLS COUNTED 100
[2018-01-13 15:51] LABS: PATH REVIEW PATHOLOGIST REVIEWED; PLATELET COMMENT DECREASED
[2018-01-13] MEDS ORDERED: MORPHINE SULFATE 10 MG/ML INJ IV ONE (16:00)
[2018-01-13] MEDS ORDERED: NORMAL SALINE 250 ML IV PRN (16:00)
[2018-01-13] MEDS: POTASSI CL 20 MEQ/50 ML RIDER 20 MEQ/50 ML RTUPB IV SCH ×2 (16:01→20:44)
[2018-01-13] MEDS ORDERED: NORMAL SALINE 1000 ML 1,000 ML IV PRN (18:43)
[2018-01-13] MEDS ORDERED: IPRATROPIUM/ALBUTEROL 0.5-2.5 MG/3 ML AMPUL NEB PRN (18:43)
--- NOTE | 2018-01-13 19:04 | PDOC H&P ---
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 She is under the care of Dr. Glover. She has tried multiple chemotherapy regimens with multiple specialist and AML in consultation where her oncologist. Patient failed all available therapy per her oncologist. This was reported to me by the patient and by the emergency care physician. She comes to the emergency room today because of acute onset of constellation of symptoms nausea and vomiting that started by 3 days ago and has been persistent with poor oral intake if hardly any. She has been also short of breath for a couple days and she feels tingling all over her body. She was discovered to be severely hypokalemic and was significantly high white blood count of 347,000. She also has a fever of 102. She is tachycardic and hypotensive. Patient is also anemic and she will be transfused per ER physician orders. I had extensive discussion with her and her relative in the room and she understands her situation and she is opting for palliative care and hospice. She is DNR. She wishes to get transfusion here and sees how she feels to stay the night or leave tomorrow. Past Medical History Pulmonary Medical History: Reports: Pneumonia Malignancy Medical History: Reports: Leukemia - AML Hematology: Reports: Anemia, Bleeding Tendencies Past Surgical History Past Surgical History: Reports: Section - x2, Herniorrhaphy, Tubal Ligation, Other - Ventral hernia and a right-sided Port-A-Cath Social History Lives with: Family Smoking Status: Former Smoker Frequency of Alcohol Use: None Hx Recreational Drug Use: No Drugs: None Hx Prescription Drug Abuse: No Family History Family History: COPD, CVA, Hypertension, Malignancy Parental Family History Reviewed: Yes Children Family History Reviewed: Yes Sibling(s) Family History Reviewed.: Yes Medication/Allergy Allergies/Adverse Reactions: naproxen [From Aleve] Allergy (Intermediate, Verified 01/13/18 13:06) Hives Review of Systems All systems: reviewed and no additional remarkable complaints except as stated Physical Exam Vital Signs: Temp Pulse Resp BP Pulse Ox 99.5 F 97 21 H 121/85 98 01/13/18 18:46 01/13/18 18:46 01/13/18 18:46 01/13/18 18:46 01/13/18 18:46 Intake & Output 01/12/18 01/13/18 01/14/18 06:59 06:59 06:59 Intake Total 50 Balance 50 General appearance: PRESENT: no acute distress, well-developed, well-nourished Head exam: PRESENT: atraumatic, normocephalic Eye exam: PRESENT: conjunctiva pink, EOMI, PERRLA. ABSENT: scleral icterus Ear exam: PRESENT: normal external ear exam Mouth exam: PRESENT: moist, tongue midline Neck exam: ABSENT: carotid bruit, JVD, lymphadenopathy, thyromegaly Respiratory exam: PRESENT: clear to auscultation sunil. ABSENT: rales, rhonchi, wheezes Cardiovascular exam: PRESENT: RRR. ABSENT: diastolic murmur, rubs, systolic murmur Vascular exam: PRESENT: normal capillary refill GI/Abdominal exam: PRESENT: normal bowel sounds, soft, tenderness. ABSENT: distended, guarding, mass, organolmegaly, rebound Rectal exam: PRESENT: deferred Extremities exam: PRESENT: full ROM. ABSENT: calf tenderness, clubbing, pedal edema Musculoskeletal exam: PRESENT: normal inspection Neurological exam: PRESENT: alert, awake, oriented to person, oriented to place , oriented to time, oriented to situation, CN II-XII grossly intact. ABSENT: motor sensory deficit Psychiatric exam: PRESENT: anxious, depressed. ABSENT: homicidal ideation, suicidal ideation Skin exam: PRESENT: dry, intact, warm. ABSENT: cyanosis, rash Results Impressions: Chest X-Ray 01/13/18 14:31 IMPRESSION: NO ACUTE RADIOGRAPHIC FINDING IN THE CHEST. 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 Glover Patient is DNR
[2018-01-13] MEDS: FAMOTIDINE 20 MG TABLET PO SCH (19:44)
--- NOTE | 2018-01-13 19:54 | EKG REPORT ---
SEVERITY:- ABNORMAL ECG - SINUS TACHYCARDIA LEFT ANTERIOR FASCICULAR BLOCK ABNORMAL T, CONSIDER ISCHEMIA, ANTERIOR LEADS : Confirmed by: Major Gurrola MD 13-Jan-2018 19:54:19
[2018-01-13] MEDS: OXYCODONE-ACETAMINOPHEN 5-325 MG TABLET PO PRN (21:51)
[2018-01-13] MEDS: ONDANSETRON 4 MG TAB.RAPDIS PO PRN (21:54)
[2018-01-13] MEDS ORDERED: TEMAZEPAM 15 MG CAPSULE PO SCH (22:00)
[2018-01-14] MEDS: ONDANSETRON 4 MG TAB.RAPDIS PO PRN ×3 (01:26→15:55)
[2018-01-14] MEDS ORDERED: LORAZEPAM INJ 2 MG/1 ML VIAL ONE (04:18)
[2018-01-14] MEDS ORDERED: LORAZEPAM INJ 2 MG/1 ML VIAL IV ONE (04:30)
[2018-01-14 06:38] LABS: ANION GAP 11 (5-19); BLOOD UREA NITROGEN 6 mg/dL (7-20); CALCIUM 7.6 mg/dL (8.4-10.2); CARBON DIOXIDE 31 mmol/L (22-30); CHLORIDE 99 mmol/L (98-107); GLUCOSE 123 mg/dL (75-110); SODIUM 141.1 mmol/L (137-145)
[2018-01-14 06:42] LABS: HEMATOCRIT 20.5 % (36.0-47.0); MEAN CORPUSCULAR HEMOGLOBIN 27.6 pg (27.0-33.4); MEAN CORPUSCULAR HGB CONC 33.3 g/dL (32.0-36.0); MEAN CORPUSCULAR VOLUME 83 fl (80-97); RED BLOOD COUNT 2.47 10^6/uL (3.72-5.28); RED CELL DISTRIBUTION WIDTH 16.9 % (11.5-14.0)
[2018-01-14 06:45] LABS: POTASSIUM 2.9 mmol/L (3.6-5.0)
[2018-01-14 07:17] LABS: HEMOGLOBIN 6.8 g/dL (12.0-15.5); PLATELET COUNT 25 10^3/uL (150-450)
[2018-01-14] MEDS: OXYCODONE-ACETAMINOPHEN 5-325 MG TABLET PO PRN ×3 (09:21→15:54)
[2018-01-14] MEDS: FAMOTIDINE 20 MG TABLET PO SCH (09:21)
--- NOTE | 2018-01-14 09:27 | PDOC DISCHARGE SUMMARY ---
General - Admit/Disc Date/PCP Admission Date/Primary Care Provider: 01/13/18 17:05 YONIS ZAMARRIPA, DO Discharge Date: 01/14/18 - Additional Information Resuscitation Status: Do Not Resuscitate Discharge Diet: As Tolerated Discharge Activity: Activity As Tolerated Prescriptions: Doxycycline Hyclate 100 mg PO BID #14 capsule Famotidine [Pepcid 20 mg Tablet] 20 mg PO Q12 #40 tablet Ondansetron [Zofran Odt 4 mg Tablet] 4 mg PO Q4HP PRN #30 tab.rapdis PRN Reason: Potassium Chloride 20 meq PO DAILY #7 tab.er.prt Home Medications: Oxycodone HCl [Oxycodone HCl 10 MG Tablet] 10 mg PO Q8HP PRN 01/13/18 Oxycodone HCl [Oxycontin Sr 10 mg Tablet] 10 mg PO Q12 01/13/18 Ruxolitinib Phosphate [Jakafi] 25 mg PO BID 01/13/18 Valacyclovir HCl [Valtrex 500 mg Tablet] 500 mg PO DAILY 01/13/18 Doxycycline Hyclate 100 mg PO BID #14 capsule 01/14/18 Famotidine [Pepcid 20 mg Tablet] 20 mg PO Q12 #40 tablet 01/14/18 Ondansetron [Zofran Odt 4 mg Tablet] 4 mg PO Q4HP PRN #30 tab.rapdis 01/14/18 Potassium Chloride 20 meq PO DAILY #7 tab.er.prt 01/14/18 History of Present Illness History of Present Illness: JENNIFER AGUILAR is a 37 year old female who has 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 She is under the care of Dr. Glover. She has tried multiple chemotherapy regimens with multiple specialist and AML in consultation where her oncologist. Patient failed all available therapy per her oncologist. This was reported to me by the patient and by the emergency care physician. She comes to the emergency room today because of acute onset of constellation of symptoms nausea and vomiting that started by 3 days ago and has been persistent with poor oral intake if hardly any. She has been also short of breath for a couple days and she feels tingling all over her body. She was discovered to be severely hypokalemic and was significantly high white blood count of 347,000. She also has a fever of 102. She is tachycardic and hypotensive. Patient is also anemic and she will be transfused per ER physician orders. I had extensive discussion with her and her relative in the room and she understands her situation and she is opting for palliative care and hospice. She is DNR. She wishes to get transfusion here and sees how she feels to stay the night or leave tomorrow. Hospital Course Hospital Course: Patient was admitted for observation She received 1 unit of blood and hemoglobin improved from 6.4-6.8 She has intermittent fever Her blood pressure improved and she feels a lot better She has issues with nausea and will give her Zofran on discharge Potassium slightly improved, will give more potassium today and will discharge on p.o. potassium supplements She was started on empiric ceftriaxone and we will discharge her on p.o. Levaquin Chest x-ray unremarkable, cultures are pending She will go home with hospice She and her family agrees to the plan Physical Exam Vital Signs: Temp Pulse Resp BP Pulse Ox 102.3 F H 144 H 17 124/68 92 01/14/18 07:39 01/14/18 07:39 01/14/18 07:39 01/14/18 07:39 01/14/18 07:39 Intake & Output 01/13/18 01/14/18 01/15/18 06:59 06:59 06:59 Intake Total 952 Balance 952 Weight 164 lb 14.492 oz General appearance: PRESENT: no acute distress, well-developed, well-nourished Head exam: PRESENT: atraumatic, normocephalic Eye exam: PRESENT: conjunctiva pale, EOMI, PERRLA. ABSENT: scleral icterus Mouth exam: PRESENT: moist, tongue midline Neck exam: ABSENT: carotid bruit, JVD, thyromegaly Respiratory exam: PRESENT: clear to auscultation sunil. ABSENT: rales, rhonchi, wheezes Cardiovascular exam: PRESENT: tachycardia. ABSENT: diastolic murmur, rubs, systolic murmur Pulses: PRESENT: normal dorsalis pedis pul GI/Abdominal exam: PRESENT: normal bowel sounds, soft. ABSENT: distended, guarding, mass, organolmegaly, rebound, tenderness Rectal exam: PRESENT: deferred Neurological exam: PRESENT: alert, awake, oriented to person, oriented to place , oriented to time, oriented to situation, CN II-XII grossly intact. ABSENT: motor sensory deficit Results Laboratory Results: 01/14/18 06:20 01/14/18 06:20 01/14/18 01/14/18 06:20 06:20 WBC 283.0 H* RBC 2.47 L Hgb 6.8 L Hct 20.5 L MCV 83 MCH 27.6 MCHC 33.3 RDW 16.9 H Plt Count 25 L* Sodium 141.1 Potassium 2.9 L* Chloride 99 Carbon Dioxide 31 H Anion Gap 11 BUN 6 L Creatinine 0.62 Est GFR ( Amer) > 60 Est GFR (Non-Af Amer) > 60 Glucose 123 H Calcium 7.6 L Impressions: Chest X-Ray 01/13/18 14:31 IMPRESSION: NO ACUTE RADIOGRAPHIC FINDING IN THE CHEST. Qualifiers - * PATIENT BEING DISCHARGED WITH ANY OF THE FOLLOWING DIAGNOSIS: No
[2018-01-14] MEDS ORDERED: CEFTRIAXONE SODIUM 1,000 MG in DEXTROSE 5%-WATER 50 ML IV SCH (10:00)
[2018-01-14] MEDS ORDERED: CEFTRIAXONE 1 GM/D5W RTU 1 GM/50 ML RTUPB IV SCH (10:00)
[2018-01-14] MEDS ORDERED: POTASSIUM CHLORIDE 10 MEQ CAPSULE.ER PO SCH (10:00)
[2018-01-14] MEDS: POTASSI CL 20 MEQ/50 ML RIDER 20 MEQ/50 ML RTUPB IV SCH ×2 (10:18→11:53)
[2018-01-14] MEDS ORDERED: METOCLOPRAMIDE HCL INJ/PF 10 MG/2 ML SDV IV ONE ×2 (10:30→16:30)
[2018-01-14] MEDS ORDERED: MORPHINE SULFATE 10 MG/ML INJ IV ONE (10:30)
[2018-01-14] MEDS: ACETAMINOPHEN 325 MG TABLET PO PRN ×2 (11:41→15:55)
[2018-01-14 16:40] VITALS: BP 119/71
== END 2018-01-14 16:49 | disposition hospice, home (50) ==
LOC: ER 13:00 → EH 17:05 → INTOOBSV 17:05 → 4S 20:13
PROVIDERS: ADMIT Internal Medicine; ATTEND Family Medicine
PROC: 30243N1 Transfusion of Nonautologous Red Blood Cells into Central Vein, Percutaneous Approach (ICD-10-PCS; principal; 2018-01-13)
DX: C92.62 Acute myeloid leukemia with 11q23-abnormality in relapse (principal); C92.02 Acute myeloblastic leukemia, in relapse; C92.A2 Acute myeloid leukemia with multilineage dysplasia, in relapse; D61.89 Other specified aplastic anemias and other bone marrow failure syndromes; E87.6 Hypokalemia; R50.9 Fever, unspecified; R11.2 Nausea with vomiting, unspecified; R00.0 Tachycardia, unspecified; I95.9 Hypotension, unspecified; R06.02 Shortness of breath; G89.29 Other chronic pain; R20.2 Paresthesia of skin; R10.10 Upper abdominal pain, unspecified; M54.5 Low back pain; Z87.891 Personal history of nicotine dependence; Z66 Do not resuscitate; Z98.51 Tubal ligation status; Z98.890 Other specified postprocedural states
CPT/HCPCS: 93005; 99291; 96361; 96375; 96365; 96367; 96368; 86900; 86901; 36415; 87040; 36430; 86850; 83690; 85025; 85027; 80048; 80053; 84484; 86920; 83605; 71045; 93010; G0378 ×3; P9016; J3490 ×3; S0119 ×2; J2765 ×2; J2270 ×2; J2060; J0696; J3480 ×2; J7030; J7050; J3370; J2543

== ENCOUNTER 2018-01-17 07:58 | Emergency (ER) | payer MEDICARE, MEDICAID ==
[2018-01-17 08:59] VITALS: BP 133/95
--- NOTE | 2018-01-17 09:39 | ER Document Report ---
ED General - General Chief Complaint: Shortness Of Breath Stated Complaint: DIFFICULTY BREATHING Time Seen by Provider: 01/17/18 08:10 Mode of Arrival: Medic Information source: Relative, Emergency Med Personnel, Outside Facility Records Cannot obtain history due to: Unstable vital signs, Altered mental status TRAVEL OUTSIDE OF THE [place] 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 She became increasingly short of breath and remained profoundly confused and somnolent during that time at which time her sister because of her concern called for EMS. In route they note that they gave her Narcan which seemed to somewhat improve her respirations but she remained essentially unresponsive during that time. Rest of history is limited secondary to patient' s obtunded status - Related Data Allergies/Adverse Reactions: naproxen [From Aleve] Allergy (Intermediate, Verified 01/13/18 13:06) Hives Past Medical History - General Information source: Patient, Relative, Emergency Med Personnel - Social History Smoking Status: Never Smoker Chew tobacco use (# tins/day): No Frequency of alcohol use: None Drug Abuse: None Family History: COPD, CVA, Hypertension, Malignancy Patient has suicidal ideation: No Patient has homicidal ideation: No Pulmonary Medical History: Reports: Hx Pneumonia Renal/ Medical History: Denies: Hx Peritoneal Dialysis Malignancy Medical History: Reports: Hx Leukemia - AML Musculoskeletal Medical History: Reports Hx Musculoskeletal Deformity - Low back pain chronic Psychiatric Medical History: Denies: Hx Depression Past Surgical History: Reports: Hx Section - x2, Hx Herniorrhaphy, Hx Tubal Ligation, Other - Ventral hernia and a right-sided Port-A-Cath - Immunizations Hx Diphtheria, Pertussis, Tetanus Vaccination: No Review of Systems - Review of Systems -: Yes ROS unobtainable due to patient's medical condition Physical Exam - Vital signs Vitals: Temp Pulse Resp BP Pulse Ox 98 F 112 H 13 133/95 H 95 01/17/18 07:58 01/17/18 07:58 01/17/18 07:58 01/17/18 07:58 01/17/18 07:58 - General General appearance: Unresponsive In distress: Severe - HEENT Head: Normocephalic, Other - Cushingoid Eyes: Normal Conjunctiva: Normal Cornea: Normal - Respiratory Respiratory status: Cyanosis, Labored, Tachypnea Chest status: Nontender Breath sounds: Productive cough, Rhonchi, Stridor - Cardiovascular Rhythm: Tachycardia Heart sounds: Normal auscultation Murmur: No - Abdominal Inspection: Normal Distension: No distension Tenderness: Nontender - Back Back: Normal - Extremities General upper extremity: Normal inspection General lower extremity: Normal inspection - Neurological Neuro grossly intact: No Cognition: Other - Unresponsive [place] Coma Scale Eye Opening: To Pain [place] Coma Scale Verbal: Incomprehensible [place] Coma Scale Motor: Withdraws to Pain [place] Coma Scale Total: 8 - Psychological Associated symptoms: Uncooperative Course - Re-evaluation Re-evalutation: 01/17/18 17:34 This 37-year-old female is on home hospice due to unsurvivable AML presents with a DNR for an episode of aspiration. Immediately evaluated the patient at the bedside with EMS personnel present, it was noted that she had an aspiration event of water at home and thereafter was essentially unresponsive. Patient was tachycardic with a decreased pulse oximetry she was placed on nonrebreather. She is an active DNR with her at this time, her sister is at the bedside. Upon discussion with the sister it is noted that Ms. Elizabeth has stated that she does not want to take aggressive measures to prolong her life as she has had persistent suffering now and knows that she will not survive her current condition, specifically she does not want to be on a ventilator or have machines helping keep her alive. I spoke to her sister about the probability of decompensation and she continued to express that Ms. Elizabeth would not want to be ventilated. Spoke to on-call hospice nurse who relayed a story that the patient is essentially in a nonsurvivable state at this time and had been utilizing more narcotics recently to help control symptoms. Well patient was deliberating on appropriate further management including potential hospitalization for comfort care or attempted transition to home or inpatient hospice the patient continued to be hypoxic despite administration of oxygen via nasal cannula until ultimately she underwent a complete cardiac arrest with pulmonary arrest. She was subsequently pronounced at 9:30 AM with her daughter son sister at the bedside. They were allowed to visit with the patient for some time thereafter, questions were answered. We will attempt to contact her primary physician for certificate signature. - Vital Signs Vital signs: Temp Pulse Resp BP Pulse Ox 98 F 112 H 13 133/95 H 95 01/17/18 07:58 01/17/18 07:58 01/17/18 07:58 01/17/18 07:58 01/17/18 07:58 Discharge - Discharge Clinical Impression: Aspiration into airway Qualifiers: Encounter type: initial encounter Qualified Code(s): T17.908A - Unspecified foreign body in respiratory tract, part unspecified causing other injury, initial encounter Condition: Critical Disposition: Referrals: YONIS ZAMARRIPA DO [Primary Care Provider] - Follow up as needed
== END 2018-01-17 10:30 | disposition expired ==
LOC: ER 07:58
DX: T17.908A Unspecified foreign body in respiratory tract, part unspecified causing other injury, initial encounter (principal); C92.00 Acute myeloblastic leukemia, not having achieved remission; R06.02 Shortness of breath; R05 Cough; R00.0 Tachycardia, unspecified
CPT/HCPCS: 36591; 99285